=== PATIENT | female | born 1990 | race Caucasian/White ===

== ENCOUNTER 2019-08-02 15:32 | Outpatient (RCR) | payer OTHER, SELFPAY ==
[2019-08-03] MEDS: RHO(D) IMMUNE GLOBULIN 300 MCG SYRINGE IM (12:34)
== END 2019-10-17 23:59 | disposition home or self-care (01) ==
LOC: ANHLAB 15:32
PROVIDERS: Visit Provider Obstetrics & Gynecology
DX: Z29.13 Encounter for prophylactic Rho(D) immune globulin (principal); O36.0990 Maternal care for other rhesus isoimmunization, unspecified trimester, not applicable or unspecified; Z3A.00 Weeks of gestation of pregnancy not specified
CPT/HCPCS: 36415; 90384; 96372; J2790

== ENCOUNTER 2019-09-22 12:21 | Emergency (ER) | payer OTHER, SELFPAY ==
--- NOTE | 2019-09-22 12:24 | ED.GENADULT ---
HPI - General Adult General Chief complaint: Upper Respiratory Infection Stated complaint: ears and congestion Time Seen by Provider: 09/22/19 12:33 Source: patient Mode of arrival: ambulatory Limitations: no limitations History of Present Illness HPI narrative: 28-year-old female patient presents the [facility] with complaints of cold symptoms for the past 4 days. Patient states she has had some nasal congestion, runny nose, sore throat and mild cough as well as a headache. Patient states that she has had pressure to the ears especially on the left side and the pressure is actually increased within the last day. Patient denies any fevers that she is aware of. Patient is currently breast-feeding at this time and did give about 2 to 3 weeks ago. Patient states she has been taking some Synex and Tylenol [id number] for her symptoms. Related Data Home Medications Medication Instructions Recorded [facility] 1 tablet PO DAILY 08/16/19 09/22/19 [] famotidine [Pepcid AC] 10 mg PO DAILY 08/16/19 09/22/19 fluoxetine [Prozac] 20 mg PO DAILY 08/16/19 09/22/19 Allergies Allergy/AdvReac Type Severity Reaction Status Date / Time No Known Allergies Allergy Verified 09/22/19 12:34 Review of Systems Review of Systems: Narrative: CONSTITUTIONAL: Denies fever, chills, or sweats. EYES: Denies visual changes, redness, or discharge. ENT: Positive rhinorrhea, congestion, sore throat, and bilateral otalgia more so on the left side. CARDIOVASCULAR: Denies chest pain, palpitations, or edema. RESPIRATORY: Positive cough, denies dyspnea. GASTROINTESTINAL: Denies abdominal pain, nausea, vomiting, or diarrhea. GENITOURINARY: Denies dysuria or hematuria. SKIN: Denies rash or itching. MUSCULOSKELETAL: Denies back pain, joint pain, or myalgia. NEUROLOGIC: Positive headache, denies numbness, or weakness. PSYCHIATRIC: Denies anxiety or depression. [facility] Past Medical History Medical History Anemia Anxiety Obesity Family History Family History Grandparent Diabetes mellitus Hypertension Sibling Diabetes mellitus Hypertension Mother Hypertension Social History Social History Smoking status: Former smoker Substance use: never Spiritual care concerns: No Comments At the time of my signature I agree with nursing past medical history, surgical, social, and family history. There is no relevant family history pertinent to the presenting complaint. Exam Narrative: Exam Narrative: GENERAL: Well-appearing, well-nourished, and in no acute distress. HEAD: Normocephalic, atraumatic. EYES: PERRLA and EOMI. ENT: Nares clear, no rhinorrhea or epistaxis. Mucous membranes moist. Posterior pharynx with erythema, 2+ tonsil enlargement and exudates noted on the left side. Patient's TM on the left does appear to have erythema noted, no foreign bodies in the canal NECK: Supple. No lymphadenopathy CHEST: Clear to auscultation. No respiratory distress. HEART: Regular rate and rhythm. No murmur heard. Normal peripheral pulses. ABDOMEN: Soft, nontender, nondistended, normal active bowel sounds. EXTREMITIES: Normal range of motion. No edema. SKIN: Warm, dry, no rash. NEURO: No focal deficits. Alert and oriented x3. Course Reevaluation(s) Reevaluation #1: Notify patient that she is negative today for strep. Discussed with her we will go ahead and treat her with the amoxicillin with for the ear infection today and she can also take Tylenol to help with the pain. Patient verbalized understanding denies any other questions or concerns at this time. Date: 09/22/19 Time: 12:51 Vital Signs Vital signs: Vital Signs Temperature 36.9 C 09/22/19 12:27 Pulse Rate 75 09/22/19 12:27 Respiratory Rate 20 09/22/19 12:27 Blood Pressure
[2019-09-22 12:27] VITALS: BP 130/89; PULSE 75; RESP 20; TEMP 36.9; O2SAT 99
== END 2019-09-22 12:55 | disposition home or self-care (01) ==
PROVIDERS: Emergency Provider Nurse Practitioner Family
DX: H66.92 Otitis media, unspecified, left ear (principal); Z87.891 Personal history of nicotine dependence; F41.9 Anxiety disorder, unspecified; D64.9 Anemia, unspecified
CPT/HCPCS: 87081; 87880; 99213; G0463

== ENCOUNTER 2019-10-09 13:08 | Emergency (ER) | payer OTHER, SELFPAY ==
[2019-10-09 13:30] VITALS: BP 133/73; PULSE 76; RESP 18; TEMP 37.2; O2SAT 99
--- NOTE | 2019-10-09 13:53 | ED.GENADULT ---
HPI - General Adult General Chief complaint: Ear Stated complaint: Possible ear infection Time Seen by Provider: 10/09/19 13:53 Source: patient Mode of arrival: ambulatory Limitations: no limitations History of Present Illness HPI narrative: This is a 28 years old female presented office for re-evaluation of possible ear infection. Stated she was seen about 2 weeks ago for URI symptoms, diagnosed with ear infection. She completed an antibiotic which has improved slightly however she still cannot hear out from her left ear. She also report a little sinus drainage with scratchy throat. Denies fever. She took Flonase and DayQuil this morning which has helped a little bit with her head congestion. I reviewed patient's previous visit. HPI - General Adult General Chief complaint: Upper Respiratory Infection Stated complaint: ears and congestion Time Seen by Provider: 09/22/19 12:33 Source: patient Mode of arrival: ambulatory Limitations: no limitations History of Present Illness HPI narrative: 28-year-old female patient presents the [facility] with complaints of cold symptoms for the past 4 days. Patient states she has had some nasal congestion, runny nose, sore throat and mild cough as well as a headache. Patient states that she has had pressure to the ears especially on the left side and the pressure is actually increased within the last day. Patient denies any fevers that she is aware of. Patient is currently breast-feeding at this time and did give about 2 to 3 weeks ago. Patient states she has been taking some Synex and Tylenol [id number] for her symptoms. Related Data Home Medications Medication Instructions Recorded Confirmed fluoxetine [Prozac] 20 mg PO DAILY 08/16/19 10/09/19 Allergies Allergy/AdvReac Type Severity Reaction Status Date / Time No Known Allergies Allergy Verified 10/09/19 13:41 Review of Systems Review of Systems: Narrative: CONSTITUTIONAL: Denies fever ENT: Reports rhinorrhea, congestion, sore throat, left ear clogged CARDIOVASCULAR: Denies chest pain RESPIRATORY: Denies cough GASTROINTESTINAL: Denies abdominal pain, nausea, vomiting, diarrhea. GENITOURINARY: Denies urinary symptoms or discharge SKIN: Denies rash MUSCULOSKELETAL: Denies acute back pain NEUROLOGIC: Denies lightheaded PMFSH Past Medical History Medical History Anemia Anxiety Obesity Family History Family History Grandparent Diabetes mellitus Hypertension Sibling Diabetes mellitus Hypertension Mother Hypertension Social History Social History Smoking status: Former smoker Substance use: never Spiritual care concerns: No Comments At time of signature, I agree with nursing past medical, surgical, social and family history. There is no relevant family history pertinent to the presenting complaint. Exam Narrative: Exam Narrative: GENERAL: This is a well-nourished, well-developed patient, in no apparent distress. EYES: PERRL. Sclera clear/white. Vision is grossly intact. EARS: External ears normal, auditory canals clear and without drainage, left TM noted fluid level. Right TM normal without perforation. Hearing grossly intact. NOSE: External nose normal with no obvious nasal discharge, nares without redness, no rhinorrhea. THROAT: Mucous membranes moist, posterior pharynx clear. NECK: Neck supple, non-tender without lymphadenopathy, masses or thyromegaly. CARDIOVASCULAR: Regular rate and rhythm without murmurs, gallops, or rubs. RESPIRATORY: Clear to auscultation. Breath sounds equal bilaterally. No wheezes, rales, or rhonchi. GASTROINTESTINAL: Abdomen soft, non-tender, nondistended. Bowel sounds are active. No hepato-splenomegaly, or palpable masses. No guarding. SKIN: warm, intact with no suspicious lesions or rash, good t
== END 2019-10-09 14:18 | disposition home or self-care (01) ==
PROVIDERS: Emergency Provider Nurse Practitioner
DX: H65.02 Acute serous otitis media, left ear (principal); F41.9 Anxiety disorder, unspecified; Z87.891 Personal history of nicotine dependence
CPT/HCPCS: 99213; G0463

== ENCOUNTER 2023-05-29 15:16 | Emergency (ER) | payer OTHER, SELFPAY ==
--- NOTE | ~2023-05-29 | XR_ITS ---
EXAMINATION: XR foot RT min 3V DATE: 05/29/2023 15:35 INDICATION: Trauma to the dorsum of the right foot TECHNIQUE: Dorsoplantar, two oblique and lateral views of the right foot were obtained. COMPARISON: None. FINDINGS: Widening of the fifth proximal interphalangeal joint with irregular cortical contour at the head of t he proximal phalanx which could represent sequela of prior trauma or more likely surgery. Correlate w ith clinical history. Bone alignment is otherwise normal. No acute fracture. Remaining joint spaces a re normal. Small plantar calcaneal spur. Mild soft tissue swelling over the dorsum of the midfoot. IMPRESSION: 1. No acute osseous abnormality. Reviewed, dictated and finalized at location A.
--- NOTE | 2023-05-29 15:23 | ED.LOWEXIN ---
HPI - Extremity Injury (Lower) General Chief Complaint: Extremity Injury, Lower Stated Complaint: Right Foot Injury Time Seen by Provider: 05/29/23 15:30 Source: patient Mode of arrival: ambulatory Limitations: no limitations History of Present Illness HPI Narrative: Jocelyn is a 32-year-old female patient presenting to the clinic today with complaints of right foot pain and bilateral ear pain. She reports that she injured her foot last night when she shut her front door on her foot. Also reports that her ears have been draining in the back of her throat and causing her to become nauseous. The ear discomfort is been going on for couple weeks. Related Data Home Medications Medication Instructions Recorded Confirmed fluoxetine 20 mg capsule (Prozac) 20 mg PO DAILY 08/16/19 10/09/19 buspirone 10 mg tablet mg 05/29/23 lurasidone 20 mg tablet mg 05/29/23 naltrexone 50 mg tablet mg 05/29/23 ondansetron HCl 4 mg tablet mg 05/29/23 Allergies Allergy/AdvReac Type Severity Reaction Status Date / Time No Known Allergies Allergy Verified 10/09/19 13:41 Review of Systems Review of Systems: Pertinent positives per HPI. Patient denies any fever, chills, rash, headache, visual changes, dizziness, cough, runny nose, sore throat, shortness of breath, chest pain, palpitations, nausea, vomiting, diarrhea, constipation, abdominal pain, or any urinary issues. PMFSH Past Medical History Medical History Anemia Anxiety Obesity Family History Family History Grandparent Diabetes mellitus Hypertension Sibling Diabetes mellitus Hypertension Mother Hypertension Social History Social History Smoking status: Former smoker Substance use: never Spiritual care concerns: No Comments At the time of my signature, I reviewed and agree with the nursing past medical, surgical, social, and family history. There is no relevant family history pertinent to the patient complaint. Exam Narrative: General: Well-developed, well nourished, in no apparent distress Head: Normocephalic, atraumatic Eyes: Pupils equally round and reactive to light bilaterally, EOM intact, sclera and conjunctive clear, no discharge, lids normal Ears: TMs intact and congested with fluid noted behind bilateral TMs ear canals clear, no drainage, grossly hearing normal. Nose: Nares patent, no discharge, no inflammation, no sinus tenderness. Mouth: Oropharynx without lesions or masses, good dentition, MMM. Neck: Supple, trachea midline, no enlargement of anterior or posterior cervical nodes, no thyroid masses or goiter palpable. Cardio: Regular rate and rhythm, s1 and s2 normal, no murmur appreciated. Resp: Clear to auscultation bilaterally anteriorly and posteriorly, no rhonchi, rales, wheezing or rubs Musculoskeletal: No deformity, bruising and swelling noted to the proximal dorsal foot with-tender to palpation, grossly normal range of motion, muscle strength strong and equal, peripheral pulse strong, no edema, no cyanosis, normal gait and station Course Course Emergency Course: Portions of this record may have been created with voice recognition software. Level of Care: Express Care Visit Vital Signs Vital signs: Vital signs reviewed MDM - Extremity Injury (Lower) MDM Narrative Medical decision making narrative: At the time of visit patient is resting comfortably on the exam table. X-ray of the right foot was performed and was negative for any sign of fracture or malalignment. I suspect patient has a contusion to the top of the right foot. Patient also has serous otitis. Prescription for prednisone was sent to the pharmacy and supportive measures were discussed with the patient and she voiced understanding discharge instructions agrees to treatment plan. William
[2023-05-29 15:25] VITALS: BP 124/69; PULSE 77; RESP 18; TEMP 36.7; O2SAT 98
[2023-05-29 15:32] VITALS: BP 124/69; PULSE 77; RESP 18; TEMP 36.7; O2SAT 98
== END 2023-05-29 15:50 | disposition home or self-care (01) ==
PROVIDERS: Emergency Provider Nurse Practitioner Family
DX: S90.31XA Contusion of right foot, initial encounter (principal); H65.00 Acute serous otitis media, unspecified ear; Z79.899 Other long term (current) drug therapy; Z87.891 Personal history of nicotine dependence; W23.0XXA Caught, crushed, jammed, or pinched between moving objects, initial encounter
CPT/HCPCS: 73630; 99203; G0463

== ENCOUNTER 2023-11-04 11:17 | Emergency (ER) | payer OTHER, SELFPAY ==
[2023-11-04 11:24] VITALS: BP 118/69; PULSE 74; RESP 16; TEMP 36.9; O2SAT 100
--- NOTE | 2023-11-04 12:22 | ED.EAR ---
HPI - Ear Problem General Chief complaint: Ear Stated complaint: Right Ear Pain Source: patient Mode of arrival: ambulatory Limitations: no limitations History of Present Illness HPI Narrative: Patient presents for evaluation of right-sided ear pain. Symptom onset this morning. Over last few days she has had some sinus congestion, sore throat and occasional cough. Denies any fever, chills, nausea, vomiting. No recent sick contacts to her knowledge. She is not taking any medication to assist with her symptoms. Denies drainage from the ear. She does vape. Related Data Home Medications Medication Instructions Recorded Confirmed fluoxetine 20 mg capsule (Prozac) 20 mg PO DAILY 08/16/19 10/09/19 buspirone 10 mg tablet mg 05/29/23 lurasidone 20 mg tablet mg 05/29/23 naltrexone 50 mg tablet mg 05/29/23 Allergies Allergy/AdvReac Type Severity Reaction Status Date / Time No Known Allergies Allergy Verified 10/09/19 13:41 Review of Systems Review of Systems: CONSTITUTIONAL: Denies fever, chills, or sweats. EYES: Denies visual changes, redness, or discharge. ENT: Reports right-sided ear pain. Denies rhinorrhea, congestion, or sore throat CARDIOVASCULAR: Denies chest pain, palpitations, or edema. RESPIRATORY: Denies cough or dyspnea. GASTROINTESTINAL: Denies abdominal pain, nausea, vomiting, or diarrhea. GENITOURINARY: Denies dysuria or hematuria. SKIN: Denies rash or itching. MUSCULOSKELETAL: Denies back pain, joint pain, or myalgia. NEUROLOGIC: Denies headache, numbness, dizziness, or weakness. PSYCHIATRIC: Denies anxiety or depression. [facility] Past Medical History Medical History Anemia Anxiety Obesity Surgical History Surgical History History of tubal ligation Family History Family History Grandparent Diabetes mellitus Hypertension Sibling Diabetes mellitus Hypertension Mother Hypertension Social History Social History Smoking status: Current every day smoker Tobacco type: e-cigarettes/vaping Substance use: never Living arrangements: with family Gender identity (if verbalized by the patient): Female Sexual Orientation (if Verbalized by the Patient): Straight or Heterosexual Spiritual care concerns: No Exam Narrative: GENERAL: Well-appearing, well-nourished, and in no acute distress. HEAD: Normocephalic, atraumatic. EYES: PERRLA and EOMI. ENT: Nares clear, no rhinorrhea or epistaxis. Mucous membranes moist. Oropharynx without tonsillar hypertrophy exudate or other lesions. Right tympanic membrane erythema with visible air fluid level NECK: Supple. No adenopathy or masses. No carotid bruits or JVD CHEST: Clear to auscultation. No respiratory distress. No wheezes rales or rhonchi HEART: Regular rate and rhythm. No murmur heard. Normal peripheral pulses. ABDOMEN: Soft, nontender, nondistended, normal active bowel sounds. EXTREMITIES: Normal range of motion. No edema. SKIN: Warm, dry, no rash. NEURO: No focal deficits. Alert and oriented x3. PSYCH: Normal mood and affect. Course Course Emergency Course: This is a 32-year-old female who presented for evaluation of right-sided ear pain. She has evidence of otitis media on exam. Will treat with Augmentin. Advised on smoking cessation. Increase hydration. [id number] agents for symptom management. Follow up with primary provider. Go to the ER for worsening symptoms. Patient in agreement with of care. Level of Care: Express Care Visit Vital Signs Vital signs: Vital Signs Temperature 36.9 C 11/04/23 11:24 Pulse Rate 74 11/04/23 11:24 Respiratory Rate 16 11/04/23 11:24 Blood Pressure 118/69 11/04/23 11:24 Pulse Oximetry 100 11/04/23 11:24 Oxygen D
== END 2023-11-04 12:26 | disposition home or self-care (01) ==
PROVIDERS: Emergency Provider Nurse Practitioner
DX: H66.91 Otitis media, unspecified, right ear (principal); F17.290 Nicotine dependence, other tobacco product, uncomplicated
CPT/HCPCS: 99213; G0463

== ENCOUNTER 2025-04-19 09:24 | Emergency (ER) | payer OTHER, SELFPAY ==
--- OUTSIDE RECORDS SUMMARY | 2025-04-06 05:40 | XMS_ITS ---
Author Organization Replaced by [facility] Address [address] [place] [address] Care Team Providers Care Accounting Reconciliation Clerk Name Role Phone Sae Allen Primary Care Provider [facility], [facility] Unavailable U navailable REASON FOR VISIT 4-6 week F/U Social History Sex Assigned At : Social History Observation Description Sex Assigned At Female Encounters Encounter Location Date Provider Diagnosis [address] [address] 04/06/2025 Sae Allen Plan Of Treatment Next Appt Details Provider Name:Sae Bella , 05/16/2025 08:20:00 AM, [address] [place] [address], [address], Progress Notes * Jocelyn GORDONDOB:[birth year] (34 yo F)Acc No.[id number]:04/06/2025 UNLOCKED PROGRESS NOTE Patient: Berna WINSLOWica Provider: Eliz Allen DNP, PMHNP-BC :1990 A ge:34 Y S ex:Female Date:04/06/2025 Address:[address] [facility] [place], [place] Subjective: * Chief Complaints: * 1 . 4-6 week F/U. * Medical History: Objective: * Vitals: Assessment: Plan: * Treatment: * * Electronic signature of Jose Allen APRN, [id number] on 04/19/2025 at 09:46 AM CDT Sign off status: Pending * Provider: Eliz Allen DNP, PMHNP- Date: 0 04/06/2025 Generated for Mariely lares/Beni/Kip on: 0 04/19/2025 09:46 AM CDT
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
[2025-04-19 09:36] VITALS: BP 135/79; PULSE 80; RESP 16; TEMP 36.9; O2SAT 100
--- OUTSIDE RECORDS SUMMARY | 2025-04-19 09:46 | XMS_ITS | Clinical Summary ---
Author Organization [facility] Address [address] [place] [address] Phone Care Team Providers Care Fancy Stitcher Name Role Phone Kade Montaño MD Primary Care Provider Allergies No known active allergies Medications oxyCODONE-aceta minophen (PERCOCET) 5-325 MG Tablet Take 1 Tab by mouth every 6 hours as needed for Pain. 8 Tab 8 Active Additional Information Patient not taking.Reported on 09/16/2023 Norethindrone, Contraceptive, 0.35 MG Tablet Take 1 Tab by mouth daily. Active HYDROcodone-micki taminophen (NORCO) 5-325 MG Tablet Take 1 Tab by mouth every 6 hours as needed for Moderate or more severe pain. 10 Tab 9 Active Additional Information Patient not taking.Reported on 09/16/2023 FLUoxetine HCl (PROZAC PO) Take by mouth. Act ranjith ondansetron (ZOFRAN) 4 MG Tablet Take 1-2 Tablets by mouth every 8 hours as needed for Nausea - 1st line. 10 Tablet 3 Active Additional Information Patient not taking.Reported on 09/16/2023 lurasidone (LATUDA) 20 MG Tablet TAKE 1 TABLET BY MOUTH ONCE DAILY IN THE EVENING WITH FOOD 4 Active busPIRone (BUSPAR) 10 MG Tablet TAKE 1 TABLET BY MOUTH TWICE DAILY FOR 14 DAYS 4 Active diclofenac (VOLTAREN) 50 MG Tablet Delayed ResponseIndicat ions:Patellar tendonitis of right knee Take 1 Tablet by mouth 3 times daily. 45 Tablet Active Social History Tobacco Use Types Packs/Day Years Used Date Smoking Tobacco: Former Cigarettes Q uit: 07/31/2017 Smokeless Tobacco: Never Tobacco Cessation:Counseling Given: Not Answered Alcohol Use Standard Drinks/Week Comments Not Currently 0 (1 standard drink = 0.6 oz pur e alcohol) occasionally Sexually Active Control Partners Comments Yes Male Comments No Sex and Gender Information Value Date Recorded Sex Assigned at Not on file Legal Sex Female 12:40 AM CDT Gender Identity Not on file Sexual Orientation Not on file Last Filed Vital Signs Vital Sign Reading Time Taken Comments Blood Pressure 134/83 12/28/2024 10:45 PM CDT Pulse 58 12/28/2024 10:45 PM CDT Temperature 37 C (98.6 F) 12/28/2024 9:10 PM CDT Respiratory Rate 16 12/28/2024 10:45 PM CDT Oxygen Saturation 100% 12/28/2024 10:45 PM CDT Inhaled Oxygen Concentration - - Weight 89.8 kg (198 lb) 12/28/2024 9:10 PM CDT Height 170.2 cm (5' 7) 12/28/2024 9:10 PM CDT Body Mass Index 31.01 12/28/2024 9:10 PM CDT Plan of Treatment Health Maintenance Due Date Last Done Comments Hepatitis C Virus (HCV) Screening 1989 Pap Smear 2010 Human Papillomavirus (HPV) Immunization (1 - 3-dose SCDM series) 2016 Cervical Cancer Screening (CCS) 12/04/2019 HPV/Cotest 12/04/2019 SARS-COV-2 Immunization (2 - 2023- season) 2024 03/22/2021 Hepatitis B Immunization (3 of 3 - 19+ 3-dose series) 07/27/2024 03/17/2024, 01/26/2024 Influenza Immunization (#1) 04/25/202502/2024, 06/23/2019 Respiratory Syncytial Virus (RSV) Immunization (Adult) (1 - 1-dose 75+ series) 2064 DTaP/Tdap/Td Immunization Discontinued 2018, 03/12/2018 TdaP Immunization Completed 06/23/2019, 03/12/2018 Meningococcal Immunization (ACWY) Aged Out No longer eligible based on patient's age to complete this topic Pneumococcal Immunization Combined Aged Out No longer eligible based on patient's age to complete this topic Rotavirus Immunization Aged Out No lo nger eligible based on patient's age to complete this topic Insurance [place]ICAID [place] Advance Directives * Full Code (Latest Code Status on File) Date Activated Date Inactivated Comments 02/14/2016 7:37 AM 02/15/2016 7:01 PM CPR-Full [place] atment: FULL ARREST: Attempt Resuscitation/CPR wit intubation and mechanical ventilation. PRE-ARREST: Use entire range of life support measures to stabilize the patient. Care Teams Fancy Stitcher Relationship Specialty Start Date End Date Kade Montaño MD [address] [place] [address], [address] [address] PCP - General Family Medicine 07/19/22
--- OUTSIDE RECORDS SUMMARY | 2025-04-19 09:46 | XMS_ITS | Clinical Summary ---
Author Organization [facility] Address [address] [place] [address] Care Team Providers Care Traffic Administrator Name Role Phone Alem Dan NP Unavailable [phone] Eulalio Garcias MD Unavailable [phone] Elissa Arteaga PT Unavailable Unavailable Kade Montaño MD Primary Care Provider Allergies No known active allergies Medications FLUoxetine (PROzac) 40 mg capsuleIndicati ons:depression Take 1 capsule (40 mg total) by mouth daily 30 capsule 11 11/30/19 23 Active busPIRone (BUSPAR) 10 mg tabletIndicatio ns:Generalized Anxiety Disorder Take 1 tablet (10 mg total) by mouth 2 (two) times a day 03/31/20 25 Active meloxicam (MOBIC) 15 mg tablet Take 1 tablet (15 mg total) by mouth daily 30 tablet 04/06/20 25 025 Active busPIRone (BUSPAR) 10 mg tabletIndicatio ns:Generalized Anxiety Disorder Take 1 tablet (10 mg total) by mouth 3 (three) times a day 90 tablet 11 11/29/19 23 025 Discontinued naltrexone microspheres (VIVITROL) 380 mg suspension,exte nded rel reconIndication s:alcoholism Inject 380 mg into the muscle as instructed every 28 (twenty-eight ) days 1.2 each 12/27/19 23 025 Discontinued(T herapy completed) lurasidone (LATUDA) 20 mg tablet Take 1 tablet (20 mg total) by mouth daily 09/14/19 24 025 Discontinued(T herapy completed) hydrOXYzine (ATARAX) 25 mg tablet Take 1 tablet (25 mg total) by mouth every 8 (eight) hours as needed 025 Discontinued(T herapy completed) Active Problems Problem Noted Date Diagnosed Date S/P tubal ligation 03/31/2025 Severe episode of recurrent major depressive disorder, without psychotic features 11/27/2022 Assessment & Plan (11/27/2022 12:51 PM CDT): Ms. Berg is a 31 yo F with a hx of depression and alcohol use, admitted for SI. Patient reports a few years of depressive sx and episodes consistent of low mood, anhedonia, change in sleep, appetite, interest and SI with one past SA. She denies psychosis and no jeffrey. She reports binge drinking alcohol and recognizing worsening depressive sx when she binge drinks. She presents now with depressive sx and SI with SA by OD on hydroxyzine. Risk assessment: patient had recent SI. Admission is appropriate. PLAN - continue admission - restart Prozac 40mg every day - increase buspirone to 10mg TID - start Naltrexone 50mg every day with plan to switch to WHITEHEAD - appreciate SW and medical team recs Moderate alcohol use disorder 11/27/2022 Assessment & Plan (11/27/2022 12:52 PM CDT): Patient hasa hx of alcohol use with use more than intended, binge drinking every few days, worsening depressive sx with drinking, inability to stop and continued drinking despite effects. - patient is motivated for treatment - start naltrexone 50mg every day with a plan to switch to WHITEHEAD - refer to therapy and OP tx Primary insomnia 09/04/2021 Overview (09/04/2021): - chronic, controlled, currnetly on Hydroxyzine 50mg but oo strong for her, adviced to lower dose to 25mg nightly PRN DDD (degenerative disc disease), lumbar 07/26/20 Degenerative lumbar spinal stenosis 07/26/2021 Grade 1 isthmic spondylolisthesis at L5-S1 06/04 Lumbar spondylosis with left L5 radiculopathy Spondylolisthesis at L5-S1 level 02/28/2021 HSV-2 (herpes simplex virus 2) infection 020 Assessment & Plan (05/11/2020 9:48 AM CDT): - has had it since 2013 - she has valcyclovir at home to use with outbreaks Alternating constipation and diarrhea 05/11/2020 Menstrual cycle disorder 05/11/2020 Abdominal pain 05/11/2020 Assessment & Plan (06/14/2020 1:57 PM CDT): Mild to moderate mid to lower abdominal cramping that occurs with BM's. She says it is not always relieved with BM's. Generalized anxiety disorder 04/19/2020 Assessment & Plan (04/19/2020 11:41 AM CDT): - being managed by psychiatry - currently on Prozac and Vistaril 25mg PRN Gastroesophageal reflux disease without esophagi tis 04/19/2020 Overview (05/11/2020): - been on Pepcid for few years - takes Pepcid daily or else gets Acid reflux - Continue on current meds, encouraged healthy diet and exercise. Avoid trigger foods including: carbonated beverages, caffeine, spicy, fried foods, tomatoes, cucumbers, and mint. Avoid eating/drinking anything for at least 2 hours before bed. Assessment & Plan (04/19/2020 11:44 AM CDT): - been on Pepcid for few years - takes Pepcid daily or else gets Acid reflux - Continue on current meds, encouraged healthy diet and exercise - Avoid trigger foods including: carbonated beverages, caffeine, spicy, fried foods, tomatoes, cucumbers, and mint Avoid eating/drinking anything for at least 2 hours before bed. - Sleep with bed propped. 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 Patient had conservative therapy which failed, and LIS by in August of this year with unfortunate recurrent disease. Will send referral to colo-rectal specialists at [place]. Patient is understanding and agreeable to treatment plan. Assessment & Plan (06/14/2020 1:47 PM CDT): Pt says she had noted multiple anal fissures. She was given nitro cream by her PCP which helped with some, but still has a fissure that is more internal and doesn't seem to be healing. She has seen blood in stool once. Usually just sees small amount of red blood on TP after wiping. Upon exam, noted to have anal fissure at about 3 o'clock and located further internally in rectum. She says she has been using the nitro cream on this area but doesn't seem to be healing. She says it is painful with BM's. Will aim to reduce frequency of BM's to help area heal. She was instructed to use fissure cream BID. Assessment & Plan (05/11/2020 9:53 AM CDT): - physical exam on last visit did was unremarkable - however, symptoms and descriptions were consistent with anal fissure - common for small anal fissures to be hard to visualize - since she had done conservative measures and was denying constipation at last time I prescribed her compounded topical nitroglycerine for use. - She has just picked it up and has not started using it, she was also prescribed fiber supplements - continue use of Sitz bath, patient denies any constipation so no need for stool softener, will prescribe nitro topical gel for use BID PRN and will also prescribe fiber supplement Assessment & Plan (04/19/2020 1:06 PM CDT): - physical exam was not remarkable - however, symptoms and descriptions are consistent with anal fissure - common for small anal fissures to be hard to visualize - continue use of Sitz bath, patient denies any constipation so no need for stool softener, will prescribe nitro topical gel for use BID PRN and will also prescribe fiber supplement - f/u in 4 weeks Resolved Problems Problem Noted Date Diagnosed Date Resolved Date Routine general medical exam ination at a [facility] 11/27/2022 03/31/2025 Assessment & Plan (11/27/2022 10:48 AM CDT): No active complaints, or chronic medical condition identified The rest of the plan is to per the primary team Cervical strain 06/04/2021 03/31/2025 MDD (major depressive disorder) 04/13/2021 11/27/2022 Family history of alcohol abuse 04/13/2021 11/27/2022 Change in bowel habit 06/14/20202022 Assessment & Plan (06/14/2020 1:56 PM CDT): Started about 5 months ago. Denies any medication changes or diet changes. She says she noted BM's alternating from diarrhea, to hard stool, to normal on weekly basis. She also started to get abdominal cramping with the BM's that isn't always relieved once she has a BM. Pt also noted multiple anal fissures, some of which have healed with nitro cream, however one that is deeper and will not heal. She has had fecal incontinence as well. She denies family history of IBD or colon cancer. Colonoscopy will be scheduled. Use dicyclomine QID prn and labs today. Nausea 06/14/2020 11/27/2022 Assessment & Plan (06/14/2020 1:56 PM CDT): Intermittently occurring since change in bowel habits. No vomiting. Change in bowel habits 06/14/202011/27 Overview (06/14/2020): Added automatically from request for surgery [id number] BMI 26.0-26.9,adult 06/14/2020 03/31/20 25 Blood in stool 05/11/2020 11/27/2022 Assessment & Plan (06/14/2020 1:57 PM CDT): Pt saw bright red blood on stool once. She usually just intermittently sees on TP. Noted to have anal fissure which is likely cause but will rule out other causes with colonoscopy. Bipolar 1 disorder 04/19/2020 3 Assessment & Plan (02/28/2021 4:06 PM CDT): - has stopped medication on her own - states she feels better - she used to follow with psychiatry Dr. Dan - used to be on Lamictal, Prozac and Hydroxyzine PRN Assessment & Plan (04/19/2020 11:40 AM CDT): - being treated by psychiatry by Dr. Dan - recently started on mood stabilizer - current medication Lamictal and Prozac, and Hydroxyzine PRN Hematoma of rectus sheath 12/14/2016 Overview (01/17/2017): Rectus sheath hematoma, initial encounter Encounters Date Type Department Care Team Description 04/06/2025 Orders Only [facility] Primary Care at [address] [phone] Kade Montaño MD 04/04/2025 Orders Only [facility] Medical [facility] Care at [address] [phone] Kade Montaño MD Pain of right hip (Primary Dx) 04/01/2025 Results Follow-Up [facility] Medical [facility] at [address] [phone] Kade Montaño MD Vaginitis panel Vaginal, RPR Blood, Vitamin D 25 hydroxy, Additional followed-up results: 11 03/31/2025 9:43 AM CDT - 03/31/2025 11:59 PM CDT Hospital Encounter [address] [address] Encounter for well woman exam with routine gynecological exam; Vaginal discharge Discharge Disposition: Discharge to home or self care 03/31/2025 9:35 AM CDT - 03/31/2025 11:59 PM CDT Hospital Encounter [facility] [address] [place] [id number] Screen for STD (sexually transmitted disease) Discharge Disposition: Discharge to home or self care 03/31/2025 9:25 AM CDT Lab [address] [address] Screen for sexually transmitted diseases; Alcohol use disorder in remission; Encounter for well woman exam with routine gynecological exam; Severe episode of recurrent major depressive disorder, without psychotic features (HCC); Generalized anxiety disorder; Primary insomnia 03/31/2025 8:15 AM CDT Office Visit [facility] at [address] [phone] Kade Montaño MD Encounter for well woman exam with routine gynecological exam (Primary Dx); Severe episode of recurrent major depressive disorder, without psychotic features (HCC); Generalized anxiety disorder; HSV-2 (herpes simplex virus 2) infection; Alcohol use disorder in remission; Primary insomnia; S/P tubal ligation; Screen for STD (sexually transmitted disease); Screen for sexually transmitted diseases; Vaginal discharge 03/17/2025 Telephone [facility] at [address] [phone] Kade Montaño MD Well woman appt request 01/20/2025 Telephone [facility] at [address] [phone] Kade Montaño MD Additional Services Or Orders from Last 3 Months Immunizations Immunization Administration Dates Next Due Hep B Vaccine 03/17/2024,01/26/2024 Influenza, Quadrivalent, Spl it, Intramuscular 06/23/2019 Influenza, Trivalent, Preser vative Free, Intramuscular 07/01/2024 Influenza, Unspecified 03/31/2025(Deferr ed: Patient Refused),09/22/2024(Deferred: Patient Refused),05/25/2021(Deferred: Patient Refused),07/27/2020(Deferred: Patient Refused),06/02/2020(Deferred: Patient Refused),05/25/2020(Deferred: Patient Refused),05/25/2020(Deferred: Patient Refused),05/25/2020(Deferred: Patient Refused),05/25/2020(Deferred: Patient Refused) MMR 04/21/2018 Tdap 06/23/2019,03/12/2018 Surgical History Surgery Date Site/Laterality Comments TUBAL LIGATION 08/25/2019 - 09/24/2019 COLONOSCOPY 07/25/2020 ANAL FISSURECTOMY 08/31/2020 Medical History Medical History Date Comments Hx Other Medical 12/14/2016 rectus sheath h emotoma with bleeding Depression 01/2017 Depression; Comm ents: DRS 12/26/2016 - Herpes Anxiety Bipolar disorder Anal fissure Anal itching Rectal pain Depression Anxiety Family History Medical History Relation Name Comments Cirrhosis Brother 1 Cirrhosis; Other Father Alive and well; Cancer Maternal Grandmother Diabetes Maternal Grandmother Anxiety disorder Mother Bipolar disorder Mother Depression Mother Hypertension Mother Hypertension; Smoker Mother Diabetes Sister 1 Hypertension Sister 1 Hypertension; No Known Problems Sister 2 Relation Name Status Comments Brother 1 Brother 2 Alive Father Alive Maternal Grandmother Alive Mother Alive Sister 1 Alive Sister 2 Alive Social History Tobacco Use Types Packs/Day Years Used Date Smoking Tobacco: Former Cigarettes Q uit: 08/01/2017 Smokeless Tobacco: Never Tobacco Cessation:Counseling Given: Not Answered Comments:Smoking History Packs/day: 10 Cigarettes Alcohol Use Standard Drinks/Week Comments No 0 (1 standard drink = 0.6 oz pur e alcohol) Humiliation, Afraid, Rape, and Kick questionnair e Answer Date Recorded Within the last year, have y ou been afraid of your partner or ex-partner? No 11/27/2022 Within the last year, have y ou been humiliated or emotionally abused in other ways by your partner or ex-partner? No Within the last year, have y ou been kicked, hit, slapped, or otherwise physically hurt by your partner or ex-partner? No 11/27/2022 Within the last year, have y ou been raped or forced to have any kind of sexual activity by your partner or ex-partner? No 11/27/2022 Social Connection and Isolation Panel Answer Date Recorded In a typical week, how many times do you talk on the phone with family, friends, or neighbors? More than three times a week 11/27/2022 How often do you get togethe r with friends or relatives? More than three times a week 11/27/2022 How often do you attend chur or islam services? Never 11/27/2022 Do you belong to any clubs o r organizations such as hinduism groups, unions, fraternal or athletic groups, or school groups? No 11/27/2022 How often do you attend meet ings of the clubs or organizations you belong to? Never 11/27/2022 Are you , , di vorced, , never , or living with a partner? 11/27/2022 AUDIT-C Answer Date Recorded Q1: How often do you have a drink containing alcohol? Never 09/22/2024 Q2: How many drinks containi ng alcohol do you have on a typical day when you are drinking? Patient does not drink Q3: How often do you have si x or more drinks on one occasion? Never 09/22/2024 Overall Financial Resource Strain (CARDIA) Answe r Date Recorded How hard is it for you to pa y for the very basics like food, housing, medical care, and heating? Not hard at all 11/27/2022 PHQ-2 Answer Date Recorded PHQ-2 Total Score (If total score is 3 or more points, staff should administer the PHQ-9) 0 03/31/2025 [facility] - Occupational Stress Questionnaire Answer Date Recorded Do you feel stress - tense, restless, nervous, or anxious, or unable to sleep at night because your mind is troubled all the time - these days? Very much 11/27/2022 Exercise Vital Sign Answer Date Recorde d On average, how many days pe r week do you engage in moderate to strenuous exercise (like a brisk walk)? 0 days 11/27/2022 On average, how many minutes do you engage in exercise at this level? 0 min 11/27/2022 Hunger Vital Sign Answer Date Recorded Within the past 12 months, y ou worried that your food would run out before you got the money to buy more. Never true 11/28/19 23 Within the past 12 months, t he food you bought just didn't last and you didn't have money to get more. Never true 11/27/2022 PRAPARE - Transportation Answer Date Re corded In the past 12 months, has l ack of transportation kept you from medical appointments or from getting medications? No 12/2022 In the past 12 months, has l ack of transportation kept you from meetings, work, or from getting things needed for daily living? No 11/27/2022 Housing Stability Vital Sign Answer Manan e Recorded In the last 12 months, was t here a time when you were not able to pay the mortgage or rent on time? No 11/27/2022 In the last 12 months, how many places have you lived? 1 11/27/2022 In the last 12 months, was t here a time when you did not have a steady place to sleep or slept in a custodial (including now)? No 11/27/2022 Personal Safety Answer Date Recorded Have you ever been in or are you currently in a harmful physical or emotional relationship or is someone making you feel afraid or unsafe? 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 Not on file Not on file Not on file Obstetrics History Para Term AB IAB SAB Ectopic Multiple Livin g Live Births 3 3 3 0 3 3 Date Outcome GA Total Labor Labor/2nd/3rd Weight Sex Type Anes PTL Skye A1 A5 Name Clin 2008 Term 39w 0d 3.487 kg (7 lb 11 oz) F Vag-S pont Epidur al N Livin g Quita Complications:None 2011 Term 39w 0d 3.147 kg (6 lb 15 oz) M Vag-S pont Epidur al N Livin g Landon 2017 Term 39w 1d 3h 05m 2h 43m/0h 17m/0h 05m 4.116 kg (9 lb 1.2 oz) F Vag-S pont Epidur al N Livin g 9 9 WIENEK E,GIRL JESSIC A Kvng Patterson MD Complications:None Delivery Location:This Facil ity ([facility] Last Filed Vital Signs Vital Sign Reading Time Taken Comments Blood Pressure 124/82 03/31/2025 8:28 AM CDT Pulse 78 03/31/2025 8:28 AM CDT Temperature 36.8 C (98.2 F) 03/31/2025 8:28 AM CDT Respiratory Rate 18 09/19/2024 1: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 Oxygen Saturation 98% 03/31/2025 8:28 AM CDT Inhaled Oxygen Concentration - - Weight 90.1 kg (198 lb 11.2 oz) 03/31/2025 8:28 AM CDT Height 170.2 cm (5' 7) 03/31/2025 8:28 AM CDT Body Mass Index 31.12 03/31/2025 8:28 AM CDT Plan of Treatment Health Maintenance Due Date Last Done Comments HPV Vaccines (1 - 3-dose SCDM series) 2016 Varicella Vaccines (1 of 2 - 13+ 2-dose series) 05/19/2018 Cervical Cancer Screening 06/02/2021 06/02/2020 Covid-19 Vaccine (2 - season) 2024 03/22/2021 Influenza Vaccine (#1) 2025 07/01/2024, 2018 Depression Screening 03/31/2026 03/31/2025, 11/26/2022, 11/26/2022, Additional history exists Regular Well Visit/Exam 18-64 03/31/2026 03/31/2025 DTaP/Tdap/Td Vaccine (3 - Td or Tdap) 06/23/2029 06/23/2019, 03/12/2018 Hepatitis B Screening Completed 03/17/2024, 024 Hepatitis C Screening Completed 03/31/2025, 021 Pneumococcal vaccine <65 Aged Out No longer eligible based on patient's age to complete this topic Procedures Procedure Name Priority Date/Time Associated Diagnosis Comments VAGINAL HIGH RISK HPV DNA DETECTION WITH GENOTYPING Routine 03/31/2025 9:35 AM CDT Encounter for well woman exam with routine gynecological exam VAGINITIS PANEL Routine 03/31/2025 9:35 AM CDT Vaginal discharge EGFR Routine 03/31/2025 9:33 AM CDT Encounter for well woman exam with routine gynecological exam CBC WITHOUT DIFFERENTIAL Routine 03/31/2025 9:33 AM CDT Encounter for well woman exam with routine gynecological exam THYROID FUNCTION CASCADE Routine 03/31/2025 9:33 AM CDT Severe episode of recurrent major depressive disorder, without psychotic features (HCC) Generalized anxiety disorder Primary insomnia Encounter for well woman exam with routine gynecological exam HEMOGLOBIN A1C Routine 03/31/2025 9:33 AM CDT Encounter for well woman exam with routine gynecological exam LIPID PANEL Routine 03/31/2025 9:33 AM CDT Encounter for well woman exam with routine gynecological exam COMPREHENSIVE METABOLIC PANEL Routine 03/31/2025 9:33 AM CDT Encounter for well woman exam with routine gynecological exam VITAMIN B12 Routine 03/31/2025 9:33 AM CDT Alcohol use disorder in remission Encounter for well woman exam with routine gynecological exam FOLATE Routine 03/31/2025 9:33 AM CDT Alcohol use disorder in remission Encounter for well woman exam with routine gynecological exam VITAMIN D 25 HYDROXY Routine 03/31/2025 9:33 AM CDT Alcohol use disorder in remission Encounter for well woman exam with routine gynecological exam HIV 1/2 ANTIBODY PLUS P24 ANTIGEN Routine 03/31/2025 9:33 AM CDT Screen for sexually transmitted diseases HEPATITIS C ANTIBODY Routine 03/31/2025 9:33 AM CDT Screen for sexually transmitted diseases HEPATITIS B SURFACE ANTIGEN Routine 03/31/2025 9:33 AM CDT Screen for sexually transmitted diseases RPR Routine 03/31/2025 9:33 AM CDT Screen for sexually transmitted diseases PAP, REFLEXED FROM HIGH RISK HPV AND GENOTYPING Routine 03/31/2025 12:00 AM CDT PAP WITH REFLEX TO HIGH RISK HPV Routine 06/02/2020 12:06 PM CDT from Last 3 Months or Most Recently Relevant to Health Maintenance Results * (ABNORMAL) Vaginal High Risk HPV DNA Detection with Genotyping (Molecular component) (03/31/2025 9:35 AM CDT) HPV HR non 16/18 vaginal Negative Negative Comment: The following Other High Risk HPV types were not detected: 31, 33, 35, 39, 45, 51, 52, 56, 58, 59, 66, and 68. ADDITIONAL INFORMATION Testing was performed using the terrance HPV assay ([employer] This report is intended for use in clinical monitoring and management of patients. It is not intended for use in medical-legal applications. This test has been modified from the biofuels product development manager's instructions. Its performance characteristics were determined by [facility] in a manner consistent with CLIA requirements. This test has not been cleared or approved by the U.S. Food and Drug Administration. Test Performed by: [place] [address] Bobtailer: Aldair Pineda Ph.D.; CLIA# [id number] HPV HR 16 vaginal Positive(A) Negative [facility] HPV HR 18 vaginal Negative Negative [facility] Vaginal 03/31/2025 9:35 AM CDT 04/06/2025 2:19 PM CDT Narrative [facility] - 04/11/2025 12:59 PM CDT Clinical history and diagnosis->routine pap smear, past one was normal Testing type->Screening Last menstrual period (date if known)->unknown Menstrual status->Irregular Contraceptive use->None us Kade Montaño MD LAB BODY FLUIDS AND STO OLS ORDERABLES Final Result [place] [id number] [facility] Department [place] [address] * Vaginitis panel Vaginal (03/31/2025 9:35 AM CDT) Bacterial Vaginosis Not Detected Not Detected Comment:A negative result do es not preclude a possible infection. Results should be considered in conjunction with clinical presentation to determine the disease status. Jenny group Not Detected Not Detected CERNER [facility] Jenny glabrata/ krusei Not Detected Not Detected [facility] Trichomonas DNA Not Detected Not Detected [facility] Vaginal 03/31/2025 9:35 AM CDT 03/31/2025 1:32 PM CDT Narrative [facility] - 03/31/2025 2:46 PM CDT The [employer] Xpert Xpress MVP test detects DNA targets from anaerobic bacteria associated with bacterial vaginosis, Jenny species associated with vulvovaginal candidiasis, and Trichomonas vaginalis by nucleic acid amplification testing (NAAT). Results should be interpreted in conjunction with other clinical data. This test cannot be used to assess therapeutic success or failure because target nucleic acids may persist following antimicrobial therapy. This test has been cleared by the [place] Food and Drug Administration to aid in the diagnosis of vaginal infections in symptomatic women ages 14 and older. The performance characteristics of this test have been verified by the [facility]. Kade Montaño MD LAB MICROBIOLOGY - [facility] ORDERABLES Final Result [id number] [facility] Department [place] [address] * eGFR (03/31/2025 9:33 AM CDT) eGFR >90 >=60 mL/min/1. 73 m2 Comment: Interpretive Data Reference Interval Normal >/= 90 mL/min/1.73m2 Mildly decreased* 60 - 89 mL/min/1.73m2 Mildly to moderately decreased 45 - 59 mL/min/1.73m2 Moderately to severely decreased 30 - 44 mL/min/1.73m2 Severely decreased 15 - 29 mL/min/1.73m2 Kidney Failure < 15 mL/min/1.73m2 *Relative to young adult level Estimated glomerular filtration rate is determined by the 2020 CKD-EPI equation recommended by the National Kidney Foundation (A Unifying Approach to GFR Estimation: Recommendations of the NKF-ASK Task Force on Reassessing the Inclusion of Race in Diagnosing Kidney Disease, JASN 2020). The CKD-EPI equation should not be used for patients with unstable renal function and has not been validated in children and those over 70. Current interpretive data was last reviewed 2021. Blood 03/31/2025 9:33 AM CDT 03/31/2025 10:58 AM CDT Kade Montaño MD LAB BLOOD ORDERABLES Fi nal Result Performing Organization Address [facility] de Phone Number [address] [address] * Thyroid Function [place] (03/31/2025 9:33 AM CDT) TSH 0.74 0.30 - 4.20 mcIUnit/mL Blood 03/31/2025 9:33 AM CDT 03/31/2025 10:58 AM CDT Kade Montaño MD LAB BLOOD ORDERABLES Fi nal Result Performing Organization Address [facility] de Phone Number [address] [address] * HIV 1/2 Antibody plus p24 Antigen Blood (03/31/2025 9:33 AM CDT) Pathologist [facility] HIV 1/2 ab + p24 ag Nonreactive Nonreactive Comment:Nonreactive for HIV- 1 antigen and HIV-1/HIV-2 antibodies. No laboratory evidence of HIV infection. If acute HIV infection is suspected, consider testing for HIV-1 RNA. Current interpretive data was last revised on 22. Blood 03/31/2025 9:33 AM CDT 03/31/2025 10:58 AM CDT Kade Montaño MD LAB MICROBIOLOGY - GENE RAL ORDERABLES Final Result Performing Organization Address [facility] de Phone Number [address] [address] * Hepatitis C antibody Blood (03/31/2025 9:33 AM CDT) Hep C Ab Nonreactive Nonreactive Comment: Antibodies to HCV not detected. Does NOT exclude the possibility of recent exposure to HCV. Current interpretive data was last revised on 22 Interpretive Data Nonreactive: Antibodies to HCV not detected. Does NOT exclude the possibility of recent exposure to HCV. Equivocal: Equivocal for HCV antibodies. Supplemental molecular testing will be automatically performed to determine infection status in accordance with current CDC screening recommendations. Reactive: Positive for HCV antibodies. This may represent current or past HCV infection. Supplemental molecular testing will be automatically performed to determine current infection status in accordance with current CDC screening recommendations. Interpretive data was last revised on 2019. Blood 03/31/2025 9:33 AM CDT 03/31/2025 10:58 AM CDT Kade Montaño MD LAB MICROBIOLOGY - GENE RAL ORDERABLES Final Result Performing Organization Address City/[facility]/ZIP Co de Phone Number [id number] [email or web address] [address] * Vitamin D 25 hydroxy (03/31/2025 9:33 AM CDT) Pathologist [facility] Vitamin D 25-OH 60.0 30.0 - 80.0 ng/mL Blood 03/31/2025 9:33 AM CDT 03/31/2025 10:58 AM CDT Kade Montaño MD LAB BLOOD ORDERABLES Fi nal Result [address] [email or web address] [address] * RPR Blood (03/31/2025 9:33 AM CDT) RPR Nonreactive Nonreactive Comment:Testing performed by : [facility], [address] [facility], [place]., [address] Blood 03/31/2025 9:33 AM CDT 03/31/2025 3:00 PM CDT Kade Montaño MD LAB MICROBIOLOGY - GENE RAL ORDERABLES Final Result Performing Organization Address [facility] de Phone Number [address] [place] [address] * Hepatitis B Surface Antigen Blood (03/31/2025 9:33 AM CDT) Pathologist [facility] HepBsAg Nonreactive Nonreactive Blood 03/31/2025 9:33 AM CDT 03/31/2025 10:58 AM CDT Kade Montaño MD LAB MICROBIOLOGY - GENE RAL ORDERABLES Final Result Performing Organization Address [facility] de Phone Number [address] [place] [address] * CBC without differential (03/31/2025 9:33 AM CDT) [facility] WBC 6.79 3.80 - 9.90 K/cumm Hgb 12.4 11.9 - 15.5 g/dL [facility] Hct 36.9 35.6 - 45.5 % [facility] Plt 235 150 - 400 K/cumm [facility] MPV 10.2 9.1 - 12.3 fL [facility] RBC 4.19 3.90 - 5.20 M/cumm [facility] MCV 88.1 81.3 - 96.4 fL [facility] MCH 29.6 27.1 - 33.3 pg [facility] MCHC 33.6 32.3 - 35.7 g/dL [facility] RDW CV 11.9 11.1 - 14.9 % [facility] RDW SD 38.3 35.7 - 48.1 fL [facility] NRBC abs 0.00 0.00 - 0.01 K/cumm [facility] Blood 03/31/2025 9:33 AM CDT 03/31/2025 10:58 AM CDT Kade Montaño MD LAB BLOOD ORDERABLES Fi nal Result Performing Organization Address [facility] Co de Phone Number [address] [place] [place] [address] * (ABNORMAL) Hemoglobin A1c (03/31/2025 9:33 AM CDT) Pathologist [facility] Hgb A1C 5.7(H) 4.0 - 5.6 % Estimated Average Glucose 117 mg/dL JONATHAN Comment: The ADA recommends reporting an estimated Average Glucose (eAG) with all Hemoglobin A1c results using the equation derived from a study of 507 normal and diabetic adults. Minority populations were underrepresented and children were not included. (Diabetes Care 31:1688-6904, 2008). The eAG is not equivalent to a fasting glucose. Blood 03/31/2025 9:33 AM CDT 03/31/2025 10:58 AM CDT Kade Montaño MD LAB BLOOD ORDERABLES Fi nal Result Performing Organization Address [facility] de Phone Number [address] [address] * Folate (03/31/2025 9:33 AM CDT) Pathologist [facility] Folic acid 11.1 >=5.0 ng/mL Blood 03/31/2025 9:33 AM CDT 03/31/2025 10:58 AM CDT Kade Montaño MD LAB BLOOD ORDERABLES Fi nal Result Performing Organization Address City/[facility] Co de Phone Number [address] [address] * Vitamin B12 (03/31/2025 9:33 AM CDT) Pathologist [facility] Vitamin B12 925 230 - 1,250 pg/mL Blood 03/31/2025 9:33 AM CDT 03/31/2025 10:58 AM CDT Kade Montaño MD LAB BLOOD ORDERABLES Fi nal Result Performing Organization Address [facility] Co de Phone Number JONATHAN [address] [facility] Department [place] [address] * (ABNORMAL) Lipid panel (03/31/2025 9:33 AM CDT) Cholesterol 208(H) 30 - 199 mg/dL Comment: Interpretive Data Ages < or = 19 years Acceptable: <170 mg/dL Borderline high: 170-199 mg/dL High: >or= 200 mg/dL Ages > or = 20 years Desirable: <200 mg/dL Borderline high: 200-239 mg/dL High: >or= 240 mg/dL Literature References: 1. Expert Panel on Integrated Guidelines for Cardiovascular Health and Risk Reduction in Children and Adolescents. Pediatrics 2011;128:S213 2. NCEP Expert Panel. Circulation 2004;110:227 Current Interpretive Data was last revised on 2018. Triglycerides 56 <=149 mg/dL JONATHAN Comment: Interpretive Data Ages < or = 9 years Acceptable: <75 mg/dL Borderline high: 75-99 mg/dL High: >or= 100 mg/dL Ages 10 to 20 years Acceptable: <90 mg/dL Borderline high: 90-129 mg/dL High: >or= 130 mg/dL Ages > or = 20 years Desirable: <150 mg/dL Borderline high: 150-199 mg/dL High: 200-499 mg/dL Very high: >or= 499 mg/dL Literature References: 1. Expert Panel on Integrated Guidelines for Cardiovascular Health and Risk Reduction in Children and Adolescents. Pediatrics 2011;128:S213 2. NCEP Expert Panel. Circulation 2004;110:227 Current Interpretive Data was last revised on 2018. HDL 73 >=40 mg/dL JONAHTAN Comment: Interpretive Data Ages < or = 19 years Acceptable: >45 mg/dL Borderline low: 40-45 mg/dL Low: <40 mg/dL Ages > or = 20 years Desirable: >or= 60 mg/dL Low: <40 mg/dL Literature References: 1. Expert Panel on Integrated Guidelines for Cardiovascular Health and Risk Reduction in Children and Adolescents. Pediatrics 2011;128:S213 2. NCEP Expert Panel. Circulation 2004;110:227 Current Interpretive Data was last revised on 2018. LDL, calculated 125 <=129 mg/dL JONATHAN ENG Comment: Interpretive Data Ages < or = 19 years Acceptable: <110 mg/dL Borderline high: 110-129 mg/dL High: >or= 130 mg/dL Ages > or = 20 years Optimal: <100 mg/dL Near optimal: 100-129 mg/dL Borderline high: 130-159 mg/dL High: >160 mg/dL Calculated using the Сергей LDL-C estimating equation. This equation was implemented on 2024. Prior to this date LDL-C was estimated using the Friedewald equation. Literature References: 1. Expert Panel on Integrated Guidelines for Cardiovascular Health and Risk Reduction in Children and Adolescents. Pediatrics 2011;128:S213 2. NCEP Expert Panel. Circulation 2004;110:227 3. Сергей Dillon et al. MACIEL Cardiol. 2020 December 23;5(5):540-548. doi: 10.1001/[email or web address] Current Interpretive Data was last revised on 2024. Non-HDL Cholesterol 135 mg/dL JONATHAN ENG Comment: Interpretive Data Ages < or = 19 years Acceptable: <120 mg/dL Borderline high: 120-144 mg/dL High: >145 mg/dL Ages > or = 20 years When triglycerides are >200 mg/dL, Non-HDL cholesterol is a secondary target of therapy with treatment goals that are 30 mg/dL greater than the LDL cholesterol target. Literature References: 1. Expert Panel on Integrated Guidelines for Cardiovascular Health and Risk Reduction in Children and Adolescents. Pediatrics 2011;128:S213 2. NCEP Expert Panel. Circulation 2004;110:227 Current Interpretive Data was last revised on 2018. Chol/HDL ratio 3 JONATHAN ENG Blood 03/31/2025 9:33 AM CDT 03/31/2025 10:58 AM CDT Narrative JONATHAN ENG - 03/31/2025 11:49 AM CDT Has the patient been fasting for 8 hours or more?->No us Kade Montaño MD LAB BLOOD ORDERABLES Fi nal Result JONATHAN ENG [address] [facility] Department of Laboratories [place], [place] [id number] * (ABNORMAL) Comprehensive metabolic panel (03/31/2025 9:33 AM CDT) Sodium 139 135 - 145 mmol/L Potassium, pl 4.4 3.3 - 4.9 mmol/L [facility] Chloride 107 97 - 110 mmol/L [facility] CO2 21(L) 22 - 32 mmol/L [facility] Anion gap 11 2 - 15 mmol/L [facility] BUN 14 6 - 25 mg/dL [facility] Creatinine 0.83 0.60 - 1.10 mg/dL [facility] Glucose 94 70 - 199 mg/dL [facility] Comment: Interpretive Data Fasting glucose >/= 126 mg/dl is diagnostic for diabetes. Fasting is defined as no caloric intake for at least 8 hours. Fasting glucose between 100 mg/dl to 125 mg/dl is diagnostic of prediabetes. In a patient with classic symptoms of hyperglycemia or hyperglycemic crisis, a random glucose >/= 200 mg/dl is diagnostic for diabetes. In the absence of unequivocal hyperglycemia, results should be confirmed by repeat testing. The classification and Diagnosis of Diabetes Diabetes Care 2021; 46: S19-S40. Current interpretive data was last revised 2022. Calcium 9.5 8.5 - 10.3 mg/dL [facility] Bilirubin, total 0.3 0.1 - 1.2 mg/dL [facility] Protein, pl 7.3 6.5 - 8.5 g/dL [facility] Albumin 4.5 3.5 - 5.0 g/dL [facility] Alk phos 50 40 - 130 Units/L [facility] ALT 18 7 - 45 Units/L [facility] AST 25 10 - 45 Units/L [facility] Blood 03/31/2025 9:33 AM CDT 03/31/2025 10:58 AM CDT us Kade Montaño MD LAB BLOOD ORDERABLES Fi nal Result JONATHAN [address] [facility] Department [place] [address] * Pap, Reflexed from High Risk HPV and Genotyping (03/31/2025 12:00 AM CDT) Pap test 03/31/2025 04/15/2025 Narrative 04/18/2025 10:15 AM CDT EPIC results best viewed via link to PDF [facility] [place] [address] Note to Patients: This report may contain a detailed description of human tissue sent by a health care provider to the laboratory for pathologic evaluation. The content of this report is essential for diagnosis and may provide important critical findings. This information may be unfamiliar to patients to review without a medical professional present. It is advised that the patient review this report in the presence of a health care provider who can answer questions and explain the details. CYTOPATHOLOGY REPORT FINAL Patient Name: HONEY BERG Gender: F : 1990 (Age: 34) Address: [address] [place] [address] Hospital #: [id number] Service: UNKNOWN Location: Patient Type: [facility] SPECIMEN Taken: 03/31/2025 Received: 04/15/2025 Accessioned: 04/15/2025 Reported: 04/18/2025 Physician(s): Kade Montaño M.D. FINAL INTERPRETATION SOURCE OF SPECIMEN High Risk HPV and Genotyping with reflex to PAP: STATEMENT OF ADEQUACY - Satisfactory for evaluation - Endocervical cells/transformation zone sample present GENERAL CATEGORIZATION: - Negative for squamous intraepithelial lesion or malignancy ml/04/18/2025 10:[address] (ASCP) Report Electronically Reviewed and Signed Out By Jamilah Galarza MS CT (ASCP) 04/18/2025 10:15:56 Cervicovaginal Cytology (Pap Test) Disclaimer: The Pap test is a screening test used to detect cervical cancer and its precursors; it is not a diagnostic procedure. False negative and false positive results do occur. Pap test results should be interpreted in the context of pertinent clinical information and biopsy results as indicated. CMS Clinical Laboratory Improvement Amendments (CLIA) mandate that cytologic and histologic results be correlated for laboratory software quality assurance analyst & improvement standards. FOR ALL HIGH-GRADE CASES we request submission of follow-up histological material and/or reports that have not been previously provided so that we may fulfill said required standards. Gross Description A. High Risk HPV and Genotyping with reflex to PAP: Cervical/vaginal - Screening ThinPrep Clinical Diagnosis and History Last Menstrual Period: unknown The patient is a 34 year old female with routine pap smear, past one was normal. Report Images and scanned documents, if included only viewable in PDF version The performance characteristics of some immunohistochemical stains, in-situ hybridization and fluorescence in-situ hybridization tests and immunophenotyping by flow cytometry cited in this report (if any) were determined by the Surgical Pathology Department at [facility] as part of an ongoing quality rep program and in compliance with federally mandated regulations drawn from the Clinical Laboratory Improvement Act of 1988 (CLIA '88). Some of these tests rely on the use of analyte specific reagents and are subject to specific labeling requirements by the US Food and Drug Administration. Such diagnostic tests may only be performed in a facility that is certified by the Department of Health and Human Services as a high complexity laboratory under CLIA '88. The FDA has determined that such clearance or approval is not necessary. This test is used for clinical purposes. It should not be regarded as investigational or for research. Nevertheless, federal rules concerning the medical use of analyte specific reagents require that the following disclaimer be attached to the report: This test was developed and its performance characteristics determined by the Surgical Pathology Department of [facility]. It has not been cleared or approved by the U. S. Food and Drug Administration. Kade Chuck Montaño MD LAB CYTOLOGY ORDERABLES Final Result * Pap with reflex to High Risk HPV (06/02/2020 12:06 PM CDT) 06/02/2020 12:0 6 PM CDT 06/02/2020 12:06 PM CDT Narrative 06/06/2020 2:17 PM CDT [facility] Department of Pathology [address] [place] [address], [place] [address] Final Report with Addendum Patient Name: HONEY BERG Address: [address] [place] [address] Gender: F : 1990 (Age: 29) Service: Laboratory Location: Lab [facility] #: [id number] Patient Type: Matt Lab Taken: 06/02/2020 Received: 06/02/2020 Accessioned:: 06/05/2020 Reported: 06/06/2020 Physician(s): Alberto Bello M.D. Diagnosis: Source of Specimen: Imaged Thinprep Pap Test plus HPV - Activities Attendant Cytologic Material Specimen Adequacy: - Satisfactory for evaluation; endocervical/transformation zone component present General Category: - Negative for intraepithelial lesion or malignancy JEANIE Hollis(ASCP) Report Electronically Reviewed and Signed Out By JEANIE Hollis(ASCP) 06/06/2020 14:17:44 Addenda: HPV RNA Test Interpretation NEGATIVE for types 16, 18, 31, 33, 35, 39, 45, 51, 52, 56, 58, 59, 66 and 68. Test performed utilizing Gen-Probe Aptima assay. JEANIE Sun(ASCP) Report Electronically Reviewed and Signed Out By JEANIE Sun(ASC) 06/05/2020 14:34:07 Specimen(s) Received: A: Imaged Thinprep Pap Test plus HPV - Activities Attendant Cytologic Material Clinical History: Last Menstrual Period: unknown The Pap test is a screening test used to aid in the detection of cervical cancer and its precursors. It should not be the sole means by which malignant and premalignant lesions are diagnosed. Both false negative and false positive results may occur. It also has poor sensitivity for the detection of endometrial lesions and should not be used to evaluate suspected endometrial abnormalities. For these reasons it is most important to obtain Pap tests at regular intervals. The performance characteristics of some immunohistochemical stains, fluorescence in-situ hybridization tests and immunophenotyping by flow cytometry cited in this report (if any) were determined by the Surgical Pathology Department at [facility] as part of an ongoing quality rep program and in compliance with federally mandated regulations drawn from the Clinical Laboratory Improvement Act of 1988 (CLIA '88). Some of these tests rely on the use of analyte specific reagents and are subject to specific labeling requirements by the US Food and Drug Administration. Such diagnostic tests may only be performed in a facility that is certified by the Department of Health and Human Services as a high complexity laboratory under CLIA '88. The FDA has determined that such clearance or approval is not necessary. This test is used for clinical purposes. It should not be regarded as investigational or for research. Nevertheless, federal rules concerning the medical use of analyte specific reagents require that the following disclaimer be attached to the report: This test was developed and its performance characteristics determined by the Surgical Pathology Department [facility]. It has not been cleared or approved by the U. S. Food and Drug Administration. Kade Montaño MD LAB CYTOLOGY ORDERABLES Final Result from Last 3 Months or Most Recently Relevant to Health Maintenance Insurance Advance Directives For more information, please contact: [phone] * Full Code (Latest Code Status on File) Date Activated Date Inactivated Comments 11/27/2022 2:46 AM 11/28/2022 9:26 PM * Full Code Date Activated Date Inactivated Comments 07/25/2020 11:43 AM 07/25/2020 5:20 PM * Full Code Date Activated Date Inactivated Comments 07/25/2020 11:14 AM 07/25/2020 11:43 AM * Full Code Date Activated Date Inactivated Comments 04/19/2018 7:36 PM 04/21/2018 4:09 PM * Full Code Date Activated Date Inactivated Comments 04/19/2018 7:12 AM 04/19/2018 7:36 PM Full CPR in case of cardiopulmonary arrest Care Teams Traffic Administrator Relationship Specialty Start Date End Date Kade Montaño MD [address] [facility] [address] [place] [address] PCP - General Family Medicine 04/19/20 Alem Dan NP [address] [address] Nurse Practitioner Family Medicine 04/19/20 Eulalio Garcias MD [address] [facility] [address] [place] [address] Referring Physician Obstetrics and Gynecology 04/19/20 Elissa Arteaga PT Physical Therapist Physical Therapy 12/24/21
--- OUTSIDE RECORDS SUMMARY | 2025-04-19 09:47 | XMS_ITS | Patient Health Record ---
Author Organization Formerly [facility] Address [address] [place] [address] Care Team Providers Care Engagement Lead Name Role Phone Sae Allen Primary Care Provider [employer], [facility] Unavailable U navailable Allergies No Known Allergies Reason For Referral No Information Medications Medication SIG (Take, Route, Frequency, Duration) Notes Start Date End Date Status Propranolol HCl 10 MG 1/2 - 1 [...] e a day; Duration: 30 days Active FLUoxetine HCl 40 MG 1 capsule Orally [...] a day; Duration: 30 days 09/17/2022 Active Social History Tobacco Use: Social History Observation Description Date Details (start date - stop date) Current Smoker NA - NA Sex Assigned At : Social History Observation Description Sex Assigned At Female Dont use, Tobacco Use/Smoking Question Answer Notes Are you a current every day smoker Additional Findings: Tobacco User e-Cigarette Alcohol Screen (Audit-C) Question Answer Notes Did you have a drink containing alcohol in the p ast year? Yes Section Notes: Family History: Patient hakan bear her mother and sister have depression and anxiety. Patient denies any family history of suicide. Patient report her mother and maternal grandfather are alcoholics. However, patient reports her maternal grandfather from liver failfure resulting from his alcoholism. Family History: Patient hakan bear her mother and sister have depression and anxiety. Patient denies any family history of suicide. Patient report her mother and maternal grandfather are alcoholics. However, patient reports her maternal grandfather from liver failfure resulting from his alcoholism. Family History: Patient hakan bear her mother and sister have depression and anxiety. Patient denies any family history of suicide. Patient report her mother and maternal grandfather are alcoholics. However, patient reports her maternal grandfather from liver failfure resulting from his alcoholism. Family History: Patient hakan bear her mother and sister have depression and anxiety. Patient denies any family history of suicide. Patient report her mother and maternal grandfather are alcoholics. However, patient reports her maternal grandfather from liver failfure resulting from his alcoholism. Family History: Patient hakan bear her mother and sister have depression and anxiety. Patient denies any family history of suicide. Patient report her mother and maternal grandfather are alcoholics. However, patient reports her maternal grandfather from liver failfure resulting from his alcoholism. Family History: Patient hakan bear her mother and sister have depression and anxiety. Patient denies any family history of suicide. Patient report her mother and maternal grandfather are alcoholics. However, patient reports her maternal grandfather from liver failfure resulting from his alcoholism. Family History: Patient hakan bear her mother and sister have depression and anxiety. Patient denies any family history of suicide. Patient report her mother and maternal grandfather are alcoholics. However, patient reports her maternal grandfather from liver failfure resulting from his alcoholism. Family History: Patient hakan bear her mother and sister have depression and anxiety. Patient denies any family history of suicide. Patient report her mother and maternal grandfather are alcoholics. However, patient reports her maternal grandfather from liver failfure resulting from his alcoholism. Family History: Patient hakan bear her mother and sister have depression and anxiety. Patient denies any family history of suicide. Patient report her mother and maternal grandfather are alcoholics. However, patient reports her maternal grandfather from liver failfure resulting from his alcoholism. 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 differential substance induced mood disorder versus MDD with mixed features Problem Overweight (124145497) Over weight (E66.3) Active confirmed Problem Alcohol use disorder (1411566562) Alcohol use disorder (F10.99) Active confirmed Problem Nightmares (161771280) Nightmares (F51.5) Active confirmed Problem Depressed bipolar I disorder (56763599) Bipolar affective disorder, current episode depressed, current episode severity unspecified (F31.30) Active confirmed versus MDD versus cluster B Problem Chronic alcoholism in remission (disorder) (143005143) Alcohol use disorder, severe, in early remission (F10.21) Active confirmed Problem Grief (085532868) Grief (F43.21) Active confirmed Problem 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) Active confirmed Vital Signs Heart Rate 72 /min 03/10/2025 Respiratory Rate 16 /min 03/10/2025 Oximetry 100 % 03/10/2025 Blood pressure diastolic 68 mm Hg 03/10/2025 Height 67 in 03/10/2025 Blood pressure systolic 122 mm Hg 03/10/2025 Weight 198.4 lbs 03/10/2025 BMI 31.07 kg/m2 03/10/2025 Encounters Encounter Location Date Provider Diagnosis [address] [place] [address] 04/21/2024 Sae Allen Bipolar 1 disorder F31.9 ; Generalized anxiety disorder F41.1 and Alcohol use disorder in remission F10.[address] [place] [address] 03/10/2025 Sae Allen Over weight E66.3 ; Bipolar 1 disorder F31.9 ; Generalized anxiety disorder F41.1 and Shift work sleep disorder G47.[address] [place] [address] 04/18/2025 Sae Allen Bipolar 1 disorder F31.9 ; Over weight E66.3 ; Generalized anxiety disorder F41.1 and Shift work sleep disorder G47.[address], [place] [address] 04/12/2025 Sae Allen Assessments Encounter Date Diagnosis (ICD Code) Assessment Notes Treatment Notes Treatment Clinical Notes Section Notes 04/21/2024 Generalized anxiety disorder (ICD-10 - F41.1) 04/21/2024 Bipolar 1 disorder (ICD-10 - F31.9) History of diagnosis. differential substance induced mood disorder versus MDD with mixed features 03/10/2025 Bipolar 1 disorder (ICD-10 - F31.9) History of diagnosis. differential substance induced mood disorder versus MDD with mixed features Client re-establishin g care after nearly a year of absence. Has not been taking mood stabilizer and has been having some ups/downs. Wants to re-trial lurasidone. Currently sober. Encouraged client to consider celebrate recovery or AA or another group support setting. Hydroxyzine discontinued due to fatigue. 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 Struggles to wake up and get going, drinking a lot of coffee (4+ cups). Discussed a trial of modafinil for shift work sleep disorder to get more in balance. Client agreeable to trial after risk versus benefit discussed. No other changes to treatment plan. 03/10/2025 Over weight (ICD-10 - E66.3) Client re-establishin g care after nearly a year of absence. Has not been taking mood stabilizer and has been having some ups/downs. Wants to re-trial lurasidone. Currently sober. Encouraged client to consider celebrate recovery or AA or another group support setting. Hydroxyzine discontinued due to fatigue. 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 Struggles to wake up and get going, drinking a lot of coffee (4+ cups). Discussed a trial of modafinil for shift work sleep disorder to get more in balance. Client agreeable to trial after risk versus benefit discussed. No other changes to treatment plan. 04/18/2025 Bipolar 1 disorder (ICD-10 - F31.9) [...] office should rash occur. Client verbalizes understanding. 04/21/2024 Alcohol use disorder in remission (ICD-10 - F10.91) 03/10/2025 Generalized anxiety disorder (ICD-10 - F41.1) Client re-establishin g care after nearly a year of absence. Has not been taking mood stabilizer and has been having some ups/downs. Wants to re-trial lurasidone. Currently sober. Encouraged client to consider celebrate recovery or AA or another group support setting. Hydroxyzine discontinued due to fatigue. 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 Struggles to wake up and get going, drinking a lot of coffee (4+ cups). Discussed a trial of modafinil for shift work sleep disorder to get more in balance. Client agreeable to trial after risk versus benefit discussed. No other changes to treatment plan. 03/10/2025 Shift work sleep disorder (ICD-10 - G47.26) Client re-establishin g care after nearly a year of absence. Has not been taking mood stabilizer and has been having some ups/downs. Wants to re-trial lurasidone. Currently sober. Encouraged client to consider celebrate recovery or AA or another group support setting. Hydroxyzine discontinued due to fatigue. 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 Struggles to wake up and get going, drinking a lot of coffee (4+ cups). Discussed a trial of modafinil for shift work sleep disorder to get more in balance. Client agreeable to trial after risk versus benefit discussed. No other changes to treatment plan. 04/18/2025 Generalized anxiety disorder (ICD-10 - F41.1) [...] office should rash occur. Client verbalizes understanding. 04/21/2024 Other Discussed sleep hygiene and caffeine intake with encouragement to limit electronic devices an hour before bed and to limit caffeine after 3:00pm. Exercise benefits for mood and health discussed. Psychoeducation regarding psychiatric illness provided. Client was educated about risks and benefits of medication, alternatives to medication, off label uses of medication, suicidal ideation with SSRIs, self-administratio n and compliance with medication along with how to safely store medication. Verbal informed consent obtained. Client agrees to return sooner if symptoms worsen or if suicidal or homicidal ideations occur. Client has the phone number to the 24-hour crisis line at [facility]. Questions addressed. Client verbalized understanding of all information and is agreeable to treatment plan. 03/10/2025 [place] issues noted. Discussed sleep hygiene and caffeine intake with encouragement to limit electronic devices an hour before bed and to limit caffeine after 3:00pm. Exercise benefits for mood and health discussed. Psychoeducation regarding psychiatric illness provided. Client was educated about risks and benefits of medication, alternatives to medication, off label uses of medication, suicidal ideation with SSRIs, self-administratio n and compliance with medication along with how to safely store medication. Verbal informed consent obtained. Client agrees to return sooner if symptoms worsen or if suicidal or homicidal ideations occur. Client has the phone number to the 24-hour crisis line at [facility]. Questions addressed. Client verbalized understanding of all information and is agreeable to treatment plan. Client re-establishin care after nearly a year of absence. Has not been taking mood stabilizer and has been having some ups/downs. Wants to re-trial lurasidone. Currently sober. Encouraged client to consider celebrate recovery or AA or another group support setting. Hydroxyzine discontinued due to fatigue. 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 Struggles to wake up and get going, drinking a lot of coffee (4+ cups). Discussed a trial of modafinil for shift work sleep disorder to get more in balance. Client agreeable to trial after risk versus benefit discussed. No other changes to treatment plan. 04/18/2025 Other Discussed sleep hygiene and caffeine intake with encouragement to limit electronic devices an hour before bed and to limit caffeine after 3:00pm. Exercise benefits for mood and health discussed. Psychoeducation regarding psychiatric illness provided. Client was educated about risks and benefits of medication, alternatives to medication, off label uses of medication, suicidal ideation with SSRIs, self-administratio n and compliance with medication along with how to safely store medication. Verbal informed consent obtained. Client agrees to return sooner if symptoms worsen or if suicidal or homicidal ideations occur. Client has the phone number to the 24-hour crisis line at [facility]. Questions addressed. Client verbalized understanding of all [...] occur. Client verbalizes understanding. Plan Of Treatment Next Appt Details Provider Name:Sae doulgas, 05/16/2025 08:20:00 AM, [address], [place], [address], Insurance Providers Payer Name Payer Address Payer Phone Subscriber Number Group Number Insured Name Patient Relationship to Insured Coverage Start Date Coverage End Date [facility] [address] [place] [address] [id number] Jocelyn Berg Self - patient is the insured 7 5 MEDICA[employer] [address] [place] [address] [id number] Jocelyn Berg Self - patient is the insured 5 5 [employer] [address] [place] [address] [id number] Jocelyn Berg Self - patient is the insured 5 [employer] [address] [place] [address] [id number] Jocelyn Berg Self - patient is the insured 7 5 [employer] [address] [place] [address] [id number] Jocelyn Berg Self - patient is the insured 0 5 [employer] [address] [place] [address] [id number] Jocelyn Berg Self - patient is the insured 5 Medical (General) History Medical History History ICD Code Anxiety disorder, unspecified F41.9 Alcohol use disorder F10.99 Major depression F32.9 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
[2025-04-19 10:07] LABS: EDUAAPPEAR Clear; EDUABILI Negative (Negative); EDUABLOOD Trace (Negative); EDUACOLOR1 Light/Pale; EDUAGLUCOSE Negative (Negative); EDUAKETONE Negative (Negative); EDUALEUKO Negative (Negative); EDUANITRATE Negative (Negative); EDUAPH 7.0; EDUAPROTEIN Negative (Negative); EDUASPGRAVITY 1.015; EDUAUROBILI 0.2
--- NOTE | 2025-04-19 10:13 | ED_ITS ---
HPI - General Adult General Chief complaint: Urogenital-Female Stated complaint: Urinary Problem Source: patient Mode of arrival: ambulatory Limitations: no limitations History of Present Illness HPI narrative: Patient presents for evaluation right lower back pain. She states she has had symptoms for several months but her pain worsened last night. Pain is constant, aching, 6/10 in severity. Pain does radiate into the right side of her abdomen. She reports urinary frequency and incomplete emptying. She denies any dysuria, hematuria, vaginal bleeding or discharge. LMP 5 days ago. She contacted her OBGYN regarding her symptoms and she was advised to go to urgent care for evaluation. 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 Surgical history positive for tubal ligation. She states she was given a prescription for meloxicam, which is a new medication for her, and she plans to pick it up today at 1:00 p.m. Related Data Home Medications ?Medication ?Instructions ?Recorded ?Confirmed ?Last Taken ?Type fluoxetine 20 mg capsule (Prozac) 20 mg PO DAILY 08/1610/09/19 09/07/19 06:00 History buspirone 10 mg tablet mg 05/29/23 Unknown History lurasidone 20 mg tablet mg 05/29/23 Unknown History naltrexone 50 mg tablet mg 05/29/23 Unknown History Allergies Allergy/AdvReac Type Severity Reaction Status Date / Time No Known Allergies Allergy Verified 10/09/19 13:41 Review of Systems Review of Systems: CONSTITUTIONAL: Denies fever, chills, or sweats. EYES: Denies visual changes, redness, or discharge. ENT: Denies rhinorrhea, congestion, sore throat, or otalgia. CARDIOVASCULAR: Denies chest pain, palpitations, or edema. RESPIRATORY: Denies cough or dyspnea. GASTROINTESTINAL:Reports some right sided abdominal pain that radiates from right lower back. Reports nausea. Denies vomiting or diarrhea. GENITOURINARY: Reports urinary frequency and incomplete emptying. Denies dysuria or hematuria. Denies vaginal bleeding/discharge SKIN: Denies rash or itching. MUSCULOSKELETAL: Reports right lower back pain. Denies joint pain, or myalgia. NEUROLOGIC: Denies headache, numbness, dizziness, or weakness. PSYCHIATRIC: Denies anxiety or depression. [facility] Past Medical History Medical History Anxiety Obesity Anemia Surgical History Surgical History History of tubal ligation Family History Family History Grandparent Diabetes mellitus Hypertension Sibling Diabetes mellitus Hypertension Mother Hypertension Social History Social History Smoking status: Current every day smoker Tobacco type: e-cigarettes/vaping Substance use: never Living arrangements: with family Gender identity (if verbalized by the patient): Female Sexual Orientation (if Verbalized by the Patient): Straight or Heterosexual Spiritual care concerns: No Exam Narrative: GENERAL: Well-appearing, well-nourished, and in no acute distress. HEAD: Normocephalic, atraumatic. EYES: PERRLA and EOMI. ENT: Nares clear, no rhinorrhea or epistaxis. Mucous membranes moist. Oropharynx without tonsillar hypertrophy exudate or other lesions. Bilateral TMs pearly muir nonbulging NECK: Supple. No adenopathy or masses. No carotid bruits or JVD CHEST: Clear to auscultation. No respiratory distress. No wheezes rales or rhonchi HEART: Regular rate and rhythm. No murmur heard. Normal peripheral pulses. ABDOMEN: Soft, nontender, nondistended, normal active bowel sounds. BACK: No CVA tenderness EXTREMITIES: Normal range of motion. No edema. SKIN: Warm, dry, no rash. NEURO: No focal deficits. Alert and oriented x3. PSYCH: Normal mood and affect. Course Course Emergency Course: This is a 34-year-old female who presented for evaluation of right lower back pain. She was concerned she has UTI. There is no evidence of such based on urine results today. She does have a trace amount of blood. I did offer to transfer her to the ER to rule out kidney stones with CT imaging. She declined. I think this is reasonable as she actually looks quite comfortable. She would prefer to follow-up with her OBGYN your primary care provider. She ready has a prescription for meloxicam. She was advised to go to the emergency department for worse symptoms worsen. Patient in agreement with plan of care Level of Care: Express Care Visit Vital Signs Vital signs: Vital Signs Temperature 36.9 C 04/19/25 09:36 Pulse Rate 80 04/19/25 09:36 Respiratory Rate 16 04/19/25 09:36 Blood Pressure 135/79 04/19/25 09:36 Pulse Oximetry 100 04/19/25 09:36 Oxygen Delivery Room Air 04/19/25 09:36 Temperature 36.9 C 04/19/25 09:36 Pulse Rate 80 04/19/25 09:36 Respiratory Rate 16 04/19/25 09:36 Blood Pressure 135/79 04/19/25 09:36 Pulse Oximetry 100 04/19/25 09:36 Oxygen Delivery Room Air 04/19/25 09:36 Medical Decision Making Vital Signs Vital Signs: Vital Signs Temperature 36.9 C 04/19/25 09:36 Pulse Rate 80 04/19/25 09:36 Respiratory Rate 16 04/19/25 09:36 Blood Pressure 135/79 04/19/25 09:36 Pulse Oximetry 100 04/19/25 09:36 Oxygen Delivery Room Air 04/19/25 09:36 Temperature 36.9 C 04/19/25 09:36 Pulse Rate 80 04/19/25 09:36 Respiratory Rate 16 04/19/25 09:36 Blood Pressure 135/79 04/19/25 09:36 Pulse Oximetry 100 04/19/25 09:36 Oxygen Delivery Room Air 04/19/25 09:36 Lab Data Labs: Lab Results 04/19/25 Range/Units 10:05 POC Urine Color Light/pale POC Urine Clarity Clear POC Urine pH 7.0 POC Ur Specif [place] 1.015 POC Urine Protein Negative (Negative) POC Ur Glucose (UA) Negative (Negative) POC Urine Ketones Negative (Negative) POC Urine Blood Trace (Negative) POC Urine Nitrite Negative (Negative) POC Urine Bilirubin Negative (Negative) POC Urine Urobilinogen 0.2 POC U Leukocyte Esteras Negative (Negative) Discharge Plan Discharge Clinical Impression: Low back pain, Hematuria, microscopic Patient Disposition: Home Condition: Stable Instructions: Antibiotic Form, Hematuria (ED), Back Pain (ED) Patient Language: Citizen Of [place] Prescriptions: No Action naltrexone 50 mg tablet buspirone 10 mg tablet lurasidone 20 mg tablet fluoxetine [Prozac] 20 mg Capsule 20 mg PO DAILY Follow-up/Referrals: Danyel,Kade Sales MD [Primary Care Provider, Unknown] Time of Disposition: 10:12
== END 2025-04-19 10:20 | disposition home or self-care (01) ==
PROVIDERS: Emergency Provider Nurse Practitioner; PCP Family Medicine
DX: R31.29 Other microscopic hematuria (principal); F41.9 Anxiety disorder, unspecified; F17.290 Nicotine dependence, other tobacco product, uncomplicated; M54.50 Low back pain, unspecified
CPT/HCPCS: 81003; 99212; G0463

== ENCOUNTER 2025-07-27 19:18 | Emergency (ER) | payer OTHER, SELFPAY ==
--- OUTSIDE RECORDS SUMMARY | 2024-03-23 13:20 | XMS_ITS ---
Author Organization [facility] Address [address] [place] [address] Phone [phone] Care Team Providers Care Housekeeping Aid Name Role Phone Alejandro SKIN DRIER Sae Primary Care Provider [employer], [facility] Unavailable U navailable REASON FOR VISIT 3 Month Psych F/U & Med Refill Medications Medication SIG (Take, Route, Frequency, Duration) Notes Start Date End Date Diagnosis (ICD Code) Status Lurasidone HCl 20 MG Tablet 1 tablet in the evening with food Orally Once a day; Duration: 30 days Bipolar 1 disorder (ICD_10 - F31.9) Active Ondansetron HCl 4 MG Tablet 1 tablet Orally Once a day; Duration: 30 days 05/28/2023 Nausea (ICD_10 - R11.0) Active busPIRone HCl 10 MG Tablet 1 tablet Orally Twice a day; Duration: 30 days 09/17/2022 04/08/2024 Generalized anxiety disorder (ICD_10 - F41.1) Active PROzac 40 MG Capsule 1 capsule Orally Once a day; Duration: 30 days Bipolar 1 disorder (ICD_10 - F31.9) Active hydrOXYzine HCl 25 MG Tablet 1 tablet Orally at night for sleep as needed; Duration: 30 days Generalized anxiety disorder (ICD_10 - F41.1) Active Social History Sex Observation Social History Observation Description Sex Observation Female Sexual Orientation Social History Observation Description Sexual Orientation Straight or heterose xual Gender Identity Social History Observation Description Gender Identity Female Encounters Date Time Type Facility Location Provider Diagnosis 03/23/2024 01:20 PM Office Visit [facility] [address] [facility] 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 3 Month Psych F/U & Med Refill. * Screening: * * Medical History: * Medications: T aking Ondansetron HCl 4 MG Tablet 1 tablet Orally Once a day , Taking Lurasidone HCl 20 MG Tablet 1 tablet in the evening with food Orally Once a day , Taking PROzac 40 MG Capsule 1 capsule Orally Once a day , Taking busPIRone HCl 10 MG Tablet 1 tablet Orally Twice a day , stop date 04/08/2024, Taking hydrOXYzine HCl 25 MG Tablet 1 tablet Orally at night for sleep as needed Objective: * Vitals: Assessment: Plan: * Treatment: * * Electronic signature of Jose Allen APRN, [id number] on 07/27/2025 at 07:21 PM DIRECTOR OF THE BIOPHYSICS FACILITY Sign off status: Pending * Provider: Eliz Allen DNP, PMHNP- Date: 0 03/23/2024 Generated for Mariely lares/Beni/Kip on: 1 09/27/2024 07:21 PM DIRECTOR OF THE BIOPHYSICS FACILITY
--- OUTSIDE RECORDS SUMMARY | 2024-04-12 09:20 | XMS_ITS ---
Author Organization [facility] Address [address] [place] [address] Phone [phone] Care Team Providers Care Optics Engineer Name Role Phone Allen CLINICAL TRAINER Sae Primary Care Provider [place] [facility], [facility] Unavailable U navailable REASON FOR VISIT 3 Month Psych F/U & Med Refill Medications Medication SIG (Take, Route, Frequency, Duration) Notes Start Date End Date Diagnosis (ICD Code) Status Ondansetron HCl 4 MG Tablet 1 tablet Orally Once a day; Duration: 30 days 05/28/2023 Nausea (ICD_10 - R11.0) Active PROzac 40 MG Capsule 1 capsule Orally Once a day; Duration: 30 days Bipolar 1 disorder (ICD_10 - F31.9) Active Lurasidone HCl 20 MG Tablet 1 tablet [...] Date Time Type Facility Location Provider Diagnosis 04/12/2024 09:20 AM [facility] [address] [facility] [place] [address] Sae Allen Plan Of Treatment Next Appt Details Provider Name:Sae Bella , 08/02/2025 09:00:00 AM, [address] [facility], [place], [address], Medical (General) History Medical History History ICD Code Anxiety disorder, unspecified F41.9 Alcohol use disorder F10.99 Major depression F32.9 Other senior care (current) drug therapy Z 79.899 Anxiety F41.9 anal fissure Surgical History Surgery Date(Month/Year) latertal sphincterotomy aug 2020 Hospitalization History Reason Date(Month/Year) Kettler suicide attempt 2016 [facility] - 03/2020 Progress Notes * Jocelyn GORDONDOB:[birth year] (34 yo F)Acc No.[id number]:04/12/2024 UNLOCKED PROGRESS NOTE Patient: Berna WINSLOWica Provider: Eliz Allen DNP, [facility]- :1990 A ge:33 Y S ex:Female Date:04/12/2024 Address:[address] [place], [place] [id number] Subjective: * Chief Complaints: * 1 . [...] capsule Orally Once a day , Taking hydrOXYzine HCl 25 MG Tablet 1 tablet Orally at night for sleep as needed Objective: * Vitals: Assessment: Plan: * Treatment: * * Electronic signature of Jose Allen APRN, [id number] on 07/27/2025 at 07:21 PM NUCLEAR PLANT CONSTRUCTION WORKER Sign off status: Pending * [facility]: [facility] Date: 0 04/12/2024 Generated for Mariely lares/Beni/eTnaveen on: 1 09/27/2024 07:21 PM NUCLEAR PLANT CONSTRUCTION WORKER
--- OUTSIDE RECORDS SUMMARY | 2024-06-23 14:40 | XMS_ITS ---
Author Organization Formerly [facility] Address [address] [place] [address] Phone [phone] Care Team Providers Care Dye Worker Name Role Phone Sae Allen APRN Primary Care Provider Mira [facility], [facility] Unavailable U navailable REASON FOR VISIT 6-8 week follow up Medications Medication SIG (Take, Route, Frequency, Duration) Notes Start Date End Date Diagnosis (ICD Code) Status hydrOXYzine HCl 25 MG Tablet 1 tablet Orally at night for sleep as needed; Duration: 30 days Generalized anxiety disorder (ICD_10 - F41.1) Active busPIRone HCl 10 MG Tablet 1 tablet Orally Twice a day; Duration: 30 days 09/17/2022 Generalized anxiety disorder (ICD_10 - F41.1) Active Lurasidone HCl 20 MG Tablet 1 tablet in the evening with food Orally Once a day; Duration: 30 days Bipolar 1 disorder (ICD_10 - F31.9) Active PROzac 40 MG Capsule 1 capsule Orally Once a day; Duration: 30 days Bipolar 1 disorder (ICD_10 - F31.9) Active Ondansetron HCl 4 MG Tablet 1 tablet Orally Once a day; Duration: 30 days 05/28/2023 Nausea (ICD_10 - R11.0) Active Social History Sex Observation Social History Observation Description Sex Observation Female Sexual Orientation Social History Observation Description Sexual Orientation Straight or heterose xual Gender Identity Social History Observation Description Gender Identity Female Encounters Date Time Type Facility Location Provider Diagnosis 06/23/2024 02:40 PM Office Visit [facility] [address] [place] [address] Sae Allen Plan Of Treatment Next Appt Details Provider Name:Sae Bella , 08/02/2025 09:00:00 AM, [address] [facility] , [place], [address], Medical (General) History Medical History History ICD Code Anxiety disorder, unspecified F41.9 Alcohol use disorder F10.99 Major depression F32.9 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 6-8 week follow up. * Screening: * * Medical History: * [...] Orally at night for sleep as needed , Taking busPIRone HCl 10 MG Tablet 1 tablet Orally Twice a day Objective: * Vitals: Assessment: Plan: * Treatment: * Recommended Wellness and Pre vention Guidelines: * S tatus A lert L ast Done N ext Due A ction Taken N ONCOMPLIANT B peggy Mass Index 0 03/27/2022 1 - - N ONCOMPLIANT C ervical cancer screening - 1 - - N ONCOMPLIANT H IV screening - 1 - - N ONCOMPLIANT S moking cessation intervention 0 08/28/2022 1 - - * * Electronic signature of Jose Allen , LATHING SUPERVISOR, [id number] on 07/27/2025 at 07:21 PM RESOLUTION SPECIALIST Sign off status: Pending * Provider: Eliz Allen DNP, PMHNP-BC Date: 1 Generated for Mariely lares/Beni/Kip on: 09/27/2024 07:21 PM RESOLUTION SPECIALIST
--- OUTSIDE RECORDS SUMMARY | 2024-07-13 10:40 | XMS_ITS ---
Author Organization [facility] Address [address] [place] [address] Phone [phone] Care Team Providers Care Sales Development Associate Name Role Phone Sae Allen APRN Primary Care Provider [phone] [facility], [facility] Unavailable U navailable REASON FOR VISIT 2 Month Psych F/U & Med Refill Social History Sex Observation Social History Observation Description Sex Observation Female Sexual Orientation Social History Observation Description Sexual Orientation Straight or heterose xual Gender Identity Social History Observation Description Gender Identity Female Encounters Date Time Type Facility Location Provider Diagnosis 07/13/2024 10:40 AM Office Visit [place] [address] [place] [address] Sae Allen Plan Of Treatment Next Appt Details Provider Name:Sae Bella , 08/02/2025 09:00:00 AM, [address], [place], [address], Medical (General) History Medical History History ICD Code Anxiety disorder, unspecified F41.9 Alcohol use disorder F10.99 Major depression F32.9 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 2 Month Psych F/U & Med Refill. * Screening: * * Medical History: Objective: * Vitals: Assessment: Plan: * Treatment: * Recommended Wellness and Pre vention Guidelines: * S tatus A lert L ast Done N ext Due A ction Taken N ONCOMPLIANT B peggy Mass Index 0 03/27/2022 1 09/12/2023 - - N ONCOMPLIANT C ervical cancer screening - 1 09/12/2023 - - N ONCOMPLIANT H IV screening - 1 09/12/2023 - - N ONCOMPLIANT S moking cessation intervention 0 08/28/2022 1 09/12/2023 - - * * Electronic signature of Jose Allen , BRIDGE DESIGN ENGINEER, [id number] on 07/27/2025 at 07:20 PM PARQUET FLOOR LAYER'S HELPER Sign off status: Pending * Provider: Eliz Allen DNP, [facility]- Date: 09/12/2023 Generated for Mariely lares/Beni/eTransmitting on: 09/27/2024 07:20 PM PARQUET FLOOR LAYER'S HELPER
--- OUTSIDE RECORDS SUMMARY | 2025-04-06 10:40 | XMS_ITS ---
Author Organization [facility] Address [address] [place] [address] Phone [phone] Care Team Providers Care Natural Resources Specialist Name Role Phone Sae Allen APRN Primary Care Provider [phone] [facility], [facility] Unavailable U navailable REASON FOR VISIT 4-6 week F/U Social History Sex Observation Social History Observation Description Sex Observation Female Sexual Orientation Social History Observation Description Sexual Orientation Straight or heterose xual Gender Identity Social History Observation Description Gender Identity Female Encounters Date Time Type Facility Location Provider Diagnosis 04/06/2025 10:40 AM Office Visit [place] [address] [place] [address] Sae Allen Plan Of Treatment Next Appt Details Provider Name:Sae Bella , 08/02/2025 09:00:00 AM, [address], [place], [address], Medical (General) History Medical History History ICD Code Anxiety disorder, unspecified F41.9 Alcohol use disorder F10.99 Major depression F32.9 Other alf (current) drug therapy Z 79.899 Anxiety F41.9 anal fissure Surgical History Surgery Date(Month/Year) latertal sphincterotomy aug 2020 Hospitalization History Reason Date(Month/Year) Kettler suicide attempt 2016 [facility] - [place] 03/2020 Progress Notes * Jocelyn GORDONDOB:[birth year] (34 yo F)Acc No.[id number]:04/06/2025 UNLOCKED PROGRESS NOTE Patient: Jocelyn WINSLOW Provider: Eliz Allen DNP, [facility]- :1990 A ge:34 Y S ex:Female Date:04/06/2025 Address:[address] [place], [place] [id number] Subjective: * Chief Complaints: * 1 . 4-6 week F/U. * Screening: * * Medical History: Objective: * Vitals: Assessment: Plan: * Treatment: * * Electronic signature of Jose Allen , AUTO BODY REPAIR TEACHER, [id number] on 07/27/2025 at 07:20 PM ADVENTURE GUIDE Sign off status: Pending * Provider: Eliz Allen DNP, [facility]- Date: 0 04/06/2025 Generated for Mariely lares/Beni/eTransmitting on: 1 09/27/2024 07:20 PM ADVENTURE GUIDE
--- OUTSIDE RECORDS SUMMARY | 2025-05-16 08:20 | XMS_ITS ---
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 Role Phone Sae Allen APRN Primary Care Provider [phone] [facility], [facility] Unavailable U navailable REASON FOR VISIT LM to R/S-mlr 4 week F/U Social History Sex Observation Social History Observation Description Sex Observation Female Sexual Orientation Social History Observation Description Sexual Orientation Straight or heterose xual Gender Identity Social History Observation Description Gender Identity Female Encounters Date Time Type Facility Location Provider Diagnosis 05/16/2025 08:20 AM Office Visit [place] [address] [place] [address] Sae Allen Plan Of Treatment Next Appt Details Provider Name:Sae Bella , 08/02/2025 09:00:00 AM[facility] [address] [place], [address], Medical (General) History Medical History History ICD Code Anxiety disorder, unspecified F41.9 Alcohol use disorder F10.99 Major depression F32.9 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 LM to R/S-mlr 4 week F/U. * Screening: * * Medical History: Objective: * Vitals: Assessment: Plan: * Treatment: * * Electronic signature of Jose Allen , STAFF TRAINING AND DEVELOPMENT MANAGER, [id number] on 07/27/2025 at 07:20 PM PAPER REWINDER OPERATOR Sign off status: Pending * Provider: Eliz Allen DNP, [facility]- Date: 0 05/16/2025 Generated for Mariely lares/Beni/eTransmitting on: 1 09/27/2024 07:20 PM PAPER REWINDER OPERATOR
--- OUTSIDE RECORDS SUMMARY | 2025-07-27 19:20 | XMS_ITS | Encounter Summary ---
Author Organization [facility] Healthcare Address [address] [place] [address] Care Team Providers Care Gift Consultant Name Role Phone Alem Dan NP Unavailable [phone] Eulalio Garcias MD Unavailable [phone] Elissa Arteaga PT Unavailable Unavailable Kade Montaño MD Primary Care Provider Reason for Visit * Reason Onset Date Comments Referral Request 07/01/2025 Encounter Details Date Type Department Care Team (Late st Contact Info) Description 07/01/2025 Telephone [facility] Primary Care at [address] [address] Kade Montaño MD [address] [place] [address] [address] [place] [address] Referral Request Social History Tobacco Use Types Packs/Day Years Used Date Smoking Tobacco: Former Cigarettes Q uit: 08/01/2017 Smokeless Tobacco: Never Comments:Smoking History Pac ks/day: 10 Cigarettes Alcohol Use Standard Drinks/Week Comments [...] 11/27/2022 How often do you attend chur ch or yazdanism services? Never 11/27/2022 Do you belong to any clubs o r organizations such as adventist groups, unions, fraternal or athletic groups, or [...] points, staff should administer the PHQ-9) 0 06/30/2025 [facility] of Occupat ional Health - Occupational Stress Questionnaire Answer Date Recorded [...] place to sleep or slept in a penitentiary (including now)? No 11/27/2022 Personal Safety Answer Date Recorded Have you ever been in or are you currently in a harmful physical or emotional relationship or is someone making you feel afraid or unsafe? 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 Just waiting on it to come through. TION ECONOMIST * Telephone Encounter - Rachel Lamar - 07/01/2025 3:03 PM CST Referral Provider Name: Dr. Adelfo Feliciano Specialty: Pain Management Address: [address] [place] [address], [address], Zip: [facility] [address] Diagnosis Code/Symptom/Reason Patient is being seen: Chronic right-sided low back pain without sciatica (M54.50,G89.29) Spondylolisthesis at L5-S1 level (M43.17) Date of Appointment: TBD, need insurance referral first NPI#: [id number] Tax ID#: Does not have Is insurance in chart up to date? Yes Additional Comments: Patient states Dr. Feliciano's office told them they needed an insurance referralbefore they could be scheduled. Does message need to be routed? Yes-Action Needed TION ECONOMIST documented in this encounter Plan of Treatment Not on file documented as of this encounter Visit Diagnoses Not on filedocumented in this encounter Care Teams Gift Consultant Relationship Specialty Start Date End Date Kade Montaño MD [address] [facility] [address] [place] [address] PCP - General Family Medicine 04/19/20 Alem Dan NP [address] [place] [address] Nurse Practitioner Family Medicine 04/19/20 Eulalio Garcias MD [address] [facility] [address] [place] [address] Referring Physician Obstetrics and Gynecology 04/19/20 Elissa Arteaga PT Physical Therapist Physical Therapy 12/24/21 documented as of this encounter
--- OUTSIDE RECORDS SUMMARY | 2025-07-27 19:20 | XMS_ITS | Patient Health Record ---
Author Organization [facility] Address [address] [place] [address] Phone [phone] Care Team Providers Care Svp Operations Name Role Phone Sae Allen APRN Primary Care Provider [phone] [employer], [facility] Unavailable U navailable Allergies No Known Allergies Reason For Referral No Information Medications Medication SIG (Take, Route, Frequency, Duration) Notes Start Date End Date Diagnosis (ICD Code) Status Ondansetron HCl 4 MG Tablet 1 tablet Orally Once a day; Duration: 30 days 05/28/2023 Nausea (ICD_10 - R11.0) Not-Taking PROzac 40 MG Capsule 1 capsule Orally Once a day; Duration: 30 days Bipolar 1 disorder (ICD_10 - F31.9) Active Propranolol HCl 20 MG Tablet TAKE 1/2 TO 1 TABLET BY MOUTH TWICE DAILY FOR ANXIETY OR INSOMNIA; Duration: 30 days Generalized anxiety disorder (ICD_10 - F41.1) Active lamoTRIgine 25 MG Tablet 1 tablet Orally twice a day; Duration: 30 days 04/18/2025 Bipolar 1 disorder (ICD_10 - F31.9) Active busPIRone HCl 10 MG Tablet 1 tablet Orally Twice a day; Duration: 30 days 09/17/2022 Generalized anxiety disorder (ICD_10 - F41.1) Active FLUoxetine HCl 40 MG Capsule 1 capsule Orally Once a day; Duration: 30 days 03/10/2025 Generalized anxiety disorder (ICD_10 - F41.1) Active Social History Tobacco Use: Social History Observation Description Date Details (start date - stop date) Never Smoker NA - NA Sex Observation Social History Observation Description Sex Observation Female Sexual Orientation Social History Observation Description Sexual Orientation Straight or heterose xual Gender Identity Social History Observation Description Gender Identity Female Social History Miscellaneous Social Info Question Answer Notes Method of learning: Preferred method of learning: Disc ussion,Demonstration Primary Social History Social Info Question Answer Notes Living Arrangement Is this a supportive environment? Yes Living Arrangement: Independent Living Single Question Alcohol Screening How many times in the past year have you had (4 for women, or 5 for men) or more drinks in a day? 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 Yes Drugs Have you used drugs other than those for medical reasons in the past 12 months? No Household: Social Info Question Answer Notes Household Marital status: Number of adults in household: 2 Number of children in household: 4 Tobacco Use: Social Info Question Answer Notes Dont use, Tobacco Use/Smoking Are you a current gunner ry day smoker Additional Findings: Tobacco User e-Cigarette Tobacco Control (Standard) Tobacco use: Nonsmoker Additional Details Category Social Info Options Details Miscellaneous Domestic violence: No Primary Social History Leisure: worki ng out Drugs/Alcohol: Do you smoke marijuana? De nies Do you drink alcohol? No- not cu rrently - 30 days sobert 10/18 Problems Problem Type SNOMED Code ICD Code Dates Problem Status W/U Status Risk Notes Problem Tobacco user (827614469) Nicotine dependence, unspecified, uncomplicated (F17.200) Added On:11/2022 Active confirmed Problem Generalized anxiety disorder (99425035) Generalized anxiety disorder (F41.1) Added On:02/2020 Active confirmed Problem Anxiety disorder (929399212) Anxiety disorder, unspecified (F41.9) Added On:03/2016 Active confirmed Problem Nausea (210161501) Nausea (R11.0) Added On:10/24 Active confirmed Problem Long-term current use of drug therapy (144909263) Other intermediate accountant (current) drug therapy (Z79.899) Added On:02/22 Active confirmed Problem Major depression (566077699) Major depression (F32.9) Added On:02/22 Onset Date: 016 Active confirmed Problem Anxiety (66256673) Anxiety (F41.9) Added On:12/2019 Active confirmed Problem Bipolar 1 disorder (842476676) Bipolar 1 disorder (F31.9) Added On:01/2020 Onset Date: 020 Active confirmed History of diagnosis. differential substance induced mood disorder versus MDD with mixed features Problem Overweight (501739475) Over weight (E66.3) Added On:02/22 Active confirmed Problem Alcohol use disorder (7452787179) Alcohol use disorder (F10.99) Added On:03/26 Active confirmed Problem Nightmares (526341302) Nightmares (F51.5) Added On:01/2020 Active confirmed Problem Depressed bipolar I disorder (06179739) Bipolar affective disorder, current episode depressed, current episode severity unspecified (F31.30) Added On:08/26 Active confirmed versus MDD versus cluster B Problem Chronic alcoholism in remission (disorder) (727577353) Alcohol use disorder, severe, in early remission (F10.21) Added On:06/25 Active confirmed Problem Grief (020494077) Grief (F43.21) Added On:11/24 Active confirmed Problem 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) Added On:02/22 Active confirmed Vital Signs Vital Sign Value Notes Appt Date Heart Rate 65 /min 06/23/2025 Temperature 97.6 degrees Fahrenheit 05/27 Respiratory Rate 16 /min 06/23/2025 Oximetry 100 % 06/23/2025 Blood pressure diastolic 86 mm Hg Height 67 inches in 06/23/2025 Blood pressure systolic 102 mm Hg 05/27 Weight 204.8 lbs lbs 06/23/2025 BMI 32.07 kg/m2 06/23/2025 Encounters Date Time Type Facility Location Provider Diagnosis 03/10/20 10:00 AM Office Visit, Est Pt., Level 4 (65331) [address] [address] Sae Allen Over weight E66.3 ; Bipolar 1 disorder F31.9 ; Generalized anxiety disorder F41.1 and Shift work sleep disorder G47.26 04/18/20 08:20 AM Telehealth Office Visit, Est Pt., Level 4 (64192) [address] [address] Sae Allen Bipolar 1 disorder F31.9 ; Over weight E66.3 ; Generalized anxiety disorder F41.1 and Shift work sleep disorder G47.26 06/23/20 08:20 AM Office Visit, Est Pt., Level 4 (10241) [address] [address] Sea Allen Over weight E66.3 ; Bipolar 1 disorder F31.9 and Generalized anxiety disorder F41.1 07/19/20 03:59 PM Telephone Encounter [address] [address] Sae Allen 04/12/20 10:48 AM Telephone Encounter [address] [address] Sae Allen 06/29/20 10:05 AM Telephone Encounter [address] [address] Sae Allen 07/26/20 11:16 AM Telephone Encounter [address] [address] Sae Allen Assessments Encounter Date Diagnosis (ICD Code) Assessment Notes Treatment Notes Section Notes 03/10/2025 Bipolar 1 disorder (ICD-10 - F31.9) History of diagnosis. differential substance induced mood disorder versus MDD with mixed features Client re-establishing care after nearly a year of absence. Has not been taking mood stabilizer and has been having some ups/downs. Wants to re-trial lurasidone. Currently sober. Encouraged client to consider celebrate recovery or AA or another group support setting. Hydroxyzine discontinued due to fatigue. 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 Struggles to wake up [...] office should rash occur. Client verbalizes understanding. 06/23/2025 Bipolar 1 disorder (ICD-10 - F31.9) History of diagnosis. differential substance induced mood disorder versus MDD with mixed features Client agreeable to retrial of lamotrigine (forgot to take daily) and increase in propranolol to address insomnia/anxiety. Wants to trial 20 mg propranolol at bedtime and continue 10 mg (1/2 tablet) during daytime. Has not had any side effects with any medications. Is starting sober group and has sponsor now. 03/10/2025 Over weight (ICD-10 - E66.3) Client re-establishing care after nearly a year of absence. Has not been taking mood stabilizer and has been having some ups/downs. Wants to re-trial lurasidone. Currently sober. Encouraged client to consider celebrate recovery or AA or another group support setting. Hydroxyzine discontinued due to fatigue. 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 Struggles to wake up and get going, drinking a lot of coffee (4+ cups). Discussed a trial of modafinil for shift work sleep disorder to get more in balance. Client agreeable to trial after risk versus benefit discussed. No other changes to treatment plan. 06/23/2025 Over weight (ICD-10 - E66.3) Client agreeable to retrial of lamotrigine (forgot to take daily) and increase in propranolol to address insomnia/anxiety. Wants to trial 20 mg propranolol at bedtime and continue 10 mg (1/2 tablet) during daytime. Has not had any side effects with any medications. Is starting sober group and has sponsor now. 04/18/2025 Over weight (ICD-10 - E66.3) Client [...] office should rash occur. Client verbalizes understanding. 06/23/2025 Generalized anxiety disorder (ICD-10 - F41.1) Client agreeable to retrial of lamotrigine (forgot to take daily) and increase in propranolol to address insomnia/anxiety. Wants to trial 20 mg propranolol at bedtime and continue 10 mg (1/2 tablet) during daytime. Has not had any side effects with any medications. Is starting sober group and has sponsor now. 03/10/2025 Generalized anxiety disorder (ICD-10 - F41.1) Client re-establishing care after nearly a year of absence. Has not been taking mood stabilizer and has been having some ups/downs. Wants to re-trial lurasidone. Currently sober. Encouraged client to consider celebrate recovery or AA or another group support setting. Hydroxyzine discontinued due to fatigue. 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 Struggles to wake up [...] office should rash occur. Client verbalizes understanding. 03/10/2025 Shift work sleep disorder (ICD-10 - G47.26) Client re-establishing care after nearly a year of absence. Has not been taking mood stabilizer and has been having some ups/downs. Wants to re-trial lurasidone. Currently sober. Encouraged client to consider celebrate recovery or AA or another group support setting. Hydroxyzine discontinued due to fatigue. 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 Struggles to wake up and get going, drinking a lot of coffee (4+ cups). Discussed a trial of modafinil for shift work sleep disorder to get more in balance. Client agreeable to trial after risk versus benefit discussed. No other changes to treatment plan. 04/18/2025 Shift work sleep disorder (ICD-10 - [...] office should rash occur. Client verbalizes understanding. 03[place]10/[place]25 [place] [...] number to the 24-hour crisis line at [facility]. Questions addressed. Client verbalized understanding of all information and is agreeable to treatment plan. Client re-establishing care after nearly a year of absence. Has not been taking mood stabilizer and has been having some ups/downs. Wants to re-trial lurasidone. Currently sober. Encouraged client to consider celebrate recovery or AA or another group support setting. Hydroxyzine discontinued due to fatigue. 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 Struggles to wake up [...] number to the 24-hour crisis line at [facility]. Questions addressed. Client verbalized understanding of [...] office should rash occur. Client verbalizes understanding. 06/23/2025 Other Discussed sleep hygiene and caffeine intake [...] number to the 24-hour crisis line at [facility]. Questions addressed. Client verbalized understanding of all information and is agreeable to treatment plan. Client agreeable to retrial of lamotrigine (forgot to take daily) and increase in propranolol to address insomnia/anxiety. Wants to trial 20 mg propranolol at bedtime and continue 10 mg (1/2 tablet) during daytime. Has not had any side effects with any medications. Is starting sober group and has sponsor now. Plan Of Treatment Next Appt Details Provider Name:Sae Bella , 08/02/2025 09:00:00 AM, [address], [place], [address], Insurance Providers Payer Name Payer Address Payer Phone Subscriber Number Group Number Insured Name Patient Relationship to Insured Coverage Start Date Coverage End Date [employer] [address] [place] [phone] [id number] Jocelyn Berg Self - patient is the insured 7 5 [employer] [address] [place] [address] [id number] Jocelyn Berg Self - patient is the insured 5 5 [employer] [address] [place] [phone] [id number] Jocelyn Berg Self - patient is the insured 5 [facility] [address] [place] [phone] [id number] Jocelyn Berg Self - patient is the insured 7 5 [employer] [address] [place] [address] [id number] Jocelyn Berg Self - patient is the insured 0 5 [employer] [address] [place] [address] [id number] Jocelyn Berg Self - patient is the insured 5 Medical (General) History Medical History History ICD Code Anxiety disorder, unspecified F41.9 Alcohol use disorder F10.99 Major depression F32.9 Other residential (current) drug therapy Z 79.899 Anxiety F41.9 anal fissure Surgical History Surgery Date(Month/Year) latertal sphincterotomy aug 2020 Hospitalization History Reason Date(Month/Year) Montanatler suicide attempt 2015 [facility] - 03/2020
--- OUTSIDE RECORDS SUMMARY | 2025-07-27 19:20 | XMS_ITS | Clinical Summary ---
Author Organization [facility] Address [address] [place] [address] Phone Care Team Providers Care Varnish Maker Helper Name Role Phone Kade Montaño MD Primary Care Provider Allergies No known active allergies Medications Norethindrone, Contraceptive, 0.35 MG Tablet Take 1 Tab by mouth daily. Active FLUoxetine HCl (PROZAC PO) Take by mouth. [...] by mouth 3 times daily. 45 Tablet 4 Active naproxen (NAPROSYN) 500 MG Tablet Take 1 Tablet by mouth 2 times daily as needed for Moderate or more severe pain. 20 Tablet 5 Active traMADol (ULTRAM) 50 MG TabletIndicatio ns:Low back pain Take 1 Tablet by mouth every 8 hours as needed for Moderate or more severe pain. 12 Tablet 5 Active Encounters Date Type Department Care Team Description 05/04/2025 Transcribe Orders [facility] [address] [place] [address] Eulalio Garcias MD Urgency of urination (Primary Dx); Frequency of micturition 05/03/2025 Transcribe Orders [facility] [address] [place] [address] Eulalio Garcias MD Urgency of urination (Primary Dx); Frequency of micturition from Last 3 Months Social History Tobacco Use Types Packs/Day Years Used Date Smoking Tobacco: Former Cigarettes 0.5 Q uit: 07/31/2017 Smokeless Tobacco: Never Tobacco [...] Sign Reading Time Taken Comments Blood Pressure 136/80 04/19/2025 2:11 PM CDT Pulse 70 04/19/2025 2:11 PM CDT Temperature 37.3 C (99.1 F) 04/19/2025 11:20 AM CDT Respiratory Rate 16 04/19/2025 2:11 PM CDT Oxygen Saturation 99% 04/19/2025 2:11 PM CDT Inhaled Oxygen Concentration - - Weight 89.8 kg (198 lb) 04/19/2025 11:20 AM CDT Height 170.2 cm (5' 7) 04/19/2025 11:20 AM CDT Body Mass Index 31.01 04/19/2025 11:20 AM CDT Plan of Treatment Health Maintenance Due Date Last Done Comments Hepatitis C Virus (HCV) Screening 1989 Varicella Immunization (1 of 2 - 13+ 2-dose series) 2002 Pap Smear 2010 Human Papillomavirus (HPV) Immunization (1 - 3-dose SCDM series) 2016 Cervical Cancer Screening (CCS) 12/04/2019 HPV/Cotest 12/04/2019 Hepatitis B Immunization (3 of 3 - 19+ 3-dose series) 07/27/2024 03/17/2024, 01/26/2024 Influenza Immunization (#1) 2025 11/0 02/2024, 06/23/2019 SARS-COV-2 Immunization (2 - season) 2025 03/22/2021 Respiratory Syncytial Virus (RSV) Immunization (Adult) (1 [...] measures to stabilize the patient. Care Teams Varnish Maker Helper Relationship Specialty Start Date End Date Kade Montaño MD [address] [place] [address], [address] [address] PCP - General Family Medicine 07/19/22
--- OUTSIDE RECORDS SUMMARY | 2025-07-27 19:20 | XMS_ITS | Clinical Summary ---
Author Organization [facility] Address [address] [place] [address] Care Team Providers Care Senior Software Analyst Name Role Phone Alem Dan NP Unavailable [phone] Eulalio Garcias MD Unavailable [phone] Elissa Arteaga PT Unavailable Unavailable Kade Montaño MD Primary Care Provider Allergies No known active allergies Medications FLUoxetine (PROzac) 40 mg capsuleIndicati ons:depression Take 1 capsule (40 mg total) by mouth daily 30 capsule 11 11/29/2022 Active busPIRone (BUSPAR) 10 mg tabletIndicatio ns:Generalized Anxiety Disorder Take 1 tablet (10 mg total) by mouth 2 (two) times a day 03/31/2025 Active meloxicam (MOBIC) 15 mg tablet Take 1 tablet (15 mg total) by mouth daily 30 tablet 04/06/2025 Active methylPREDNISol one (MEDROL DOSEPACK) 4 mg Dosepack Take as directed on package. 21 tablet 06/30/2025 Active cyclobenzaprine (FLEXERIL) 10 mg tabletIndicatio ns:Muscle Spasm Take 1 tablet (10 mg total) by mouth nightly as needed for muscle spasms 90 tablet 06/30/2025 Active lamoTRIgine (LaMICtal) 25 mg tablet 06/30/2025 Active Active Problems Problem Noted Date Diagnosed Date High risk HPV infection 04/27/2025 Assessment & Plan (04/27/2025 6:06 AM CDT): - noted on pap smear obtained in office - no abnormal cervical tissue noted on result - referral placed for OBGYN due to presence of high risk HPV as she will need closer follow up and repeat pap smears S/P tubal ligation 03/31/2025 Severe episode of recurrent major depressive disorder, without psychotic features 11/27/2022 Assessment & Plan (11/27/2022 12:51 PM CDT): Ms. Gordon is a 31 yo F with a [...] - appreciate SW and medical team recs Alcohol use disorder in remission 11/27/2022 Assessment & Plan (11/27/2022 12:52 PM [...] PRN DDD (degenerative disc disease), lumbar 07/26/20 21 Degenerative lumbar spinal stenosis 07/26/2021 Grade 1 isthmic spondylolisthesis at L5-S1 06/04 Lumbar spondylosis with left L5 radiculopathy Spondylolisthesis at L5-S1 level 02/28/2021 Assessment & Plan (07/01/2025 4:20 AM REVENUE TAX SPECIALIST): Low back pain with right-sided myofascial and sacroiliac involvement and lumbosacral spondylolisthesis Chronic low back pain with right-sided myofascial and sacroiliac involvement, exacerbated by physical activity and occupational demands. Previous imaging showed lumbosacral spondylolisthesis and radiculopathy. She was also previously evaluated by orthopedic surgery several years ago. Hx of MRI in past as well, documented below. She has hx of L5 pars defect - Patient was seen in the emergency department at [facility] on 04/19/2025 with a chief complaint of low back pain. - Prior evaluation in 08/24/2024 for low back pain with x-ray of lumbar spine that was done per chart review - She has done physical therapy for acute left-sided low back pain back in 05/2021 - She was previously evaluated by an orthopedic spine surgeon in 2020 and had time to diagnosis was grade 1 spondylolisthesis at L5-S1, lumba spondylosis with L5 radiculopathy, strain of neck muscle as well as isthmic spondylolisthesis. At the time she also had an x-ray of the cervical spine as well as lumbar spine. She was started on meloxicam 15 mg daily, short course of steroids as well as gabapentin that she was prescribed at the time. Current management includes meloxicam and tramadol, with limited relief. Discussed potential benefits of pain management interventions, including spinal injections,trigger point injections. Risks of long-term NSAID use include gastrointestinal and renal complications. Muscle relaxers may aid in nighttime pain relief. Insurance coverage for pain management services needs verification given her insurance is [employer]. - Referred to pain management for evaluation and potential spinal injections. - Prescribed Medrol Dose Pack for acute pain management. - Continue meloxicam with caution due to potential renal and gastrointestinal side effects. - Prescribed muscle relaxers for nighttime use to aid in muscle relaxation and sleep. - Advised rest and limitation of physical activity for three weeks, with a reduced work schedule of four hours per day. - Ordered kidney function tests and electrolytes to monitor renal health. - Scheduled follow-up appointment in one month. - Provided letter for time off for work she missed and limited restriction in work hours for next 2-3 weeks MRI lumbar spine 05/2017 IMPRESSION: 1.BILATERAL L5 PARS INTRA-ARTICULARIS DEFECTS WITH SECONDARY MINIMAL ANTEROLISTHESIS OF L5 ON S1. THIS CORRELATES TO RADIOGRAPHIC FINDINGS. 2.MILD POSTERIOR DISC BULGING AT L5-S1 CAUSING MILD CANAL AND FORAMINAL NARROWING. 3.OTHERWISE NORMAL MRI OF THE LUMBAR SPINE. 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 Patient is understanding and agreeable to treatment [...] Routine general medical exam ination at a health care facility 11/27/2022 03/31/2025 Assessment & Plan [...] (06/14/2020): Added automatically from request for surgery [id number] BMI 26.0-26.9,adult 06/14/2020 03/31/20 25 Blood in stool 05/11/2020 11/27/2022 Assessment & Plan (06/14/2020 1:57 PM CDT): Pt saw bright red blood on stool once. She usually just intermittently sees on TP. Noted to have anal fissure which is likely cause but will rule out other causes with colonoscopy. Abdominal pain 05/11/2020 04/27/2025 Assessment & Plan (06/14/2020 1:57 PM CDT): Mild to moderate mid to lower abdominal cramping that occurs with BM's. She says it is not always relieved with BM's. Bipolar 1 disorder 04/19/2020 3 Assessment & [...] Encounters Date Type Department Care Team Description 07/14/2025 8:53 AM REVENUE TAX SPECIALIST - 07/14/2025 11:59 PM REVENUE TAX SPECIALIST Hospital Encounter [facility] [address] [place] [address] A, [address] [place] [address] Adelfo Feliciano MD Sacroiliitis Discharge Disposition: Discharge to home or self care 07/06/2025 12:35 PM REVENUE TAX SPECIALIST - 07/06/2025 11:59 PM REVENUE TAX SPECIALIST Hospital Encounter [facility] [address] [facility] A, [address] [place] [address] Lorna Gunderson NP Sacroiliitis (Primary Dx); Acute right-sided low back pain without sciatica; Grade 1 isthmic spondylolisthesis at L5-S1 Discharge Disposition: Discharge to home or self care 07/01/2025 Telephone [facility] at [address] [phone] Kade Montaño MD Referral Request 06/30/2025 11:30 AM REVENUE TAX SPECIALIST Office Visit [facility] at [address] [address] Kade Montaño MD Right flank pain (Primary Dx); Chronic right-sided low back pain without sciatica; Spondylolisthesis at L5-S1 level from Last 3 Months Immunizations Immunization Administration Dates Next Due Hep B Vaccine 03/17/2024,01/26/2024 Influenza, Quadrivalent, Spl it, Intramuscular 06/23/2019 Influenza, Trivalent, Preser vative Free, Intramuscular 07/01/2024 Influenza, Unspecified 06/30/2025(Deferr ed: Patient Refused),03/31/2025(Deferred: Patient Refused),09/22/2024(Deferred: Patient Refused),05/25/2021(Deferred: Patient Refused),07/27/2020(Deferred: Patient [...] often do you attend chur ch or sabianist services? Never 11/27/2022 Do you belong to any clubs o r organizations such as congregation groups, unions, fraternal or athletic groups, or [...] points, staff should administer the PHQ-9) 0 07/06/2025 [facility] - Occupational Stress Questionnaire Answer Date [...] place to sleep or slept in a longterm (including now)? No 11/27/2022 PHQ-9 Answer Date Recorded PHQ-9 Total Score 2 07/06/2025 Personal Safety Answer Date Recorded Have you ever been in or are you currently in a harmful physical or emotional relationship or is someone making you feel afraid or unsafe? Denies 09/19/2024 Comments No Sex and Gender Information Value Date Recorded Sex Assigned at Not on file Legal Sex Female 5:49 PM REVENUE TAX SPECIALIST Gender Identity Not on file Sexual Orientation [...] g 9 9 WIENEK E,GIRL JESSIC A Maria Luisa quigley, Kvng Sewell MD Complications:None Delivery Location:This [facility] ([facility]) Last Filed Vital Signs Vital Sign Reading Time Taken Comments Blood Pressure 128/82 07/14/2025 9:15 AM REVENUE TAX SPECIALIST Pulse 78 07/14/2025 9:15 AM REVENUE TAX SPECIALIST Temperature 36.6 C (97.9 F) 07/14/2025 9:02 AM REVENUE TAX SPECIALIST Respiratory Rate 18 07/14/2025 9:15 AM REVENUE TAX SPECIALIST Oxygen Saturation 98% 07/14/2025 9:15 AM REVENUE TAX SPECIALIST Inhaled Oxygen Concentration - - Weight 89 kg (196 lb 3.2 oz) 06/30/2025 11:54 AM REVENUE TAX SPECIALIST Height 170.2 cm (5' 7) 06/30/2025 11:54 AM REVENUE TAX SPECIALIST Body Mass Index 30.73 06/30/2025 11:54 AM REVENUE TAX SPECIALIST Plan of Treatment Health Maintenance Due Date Last Done Comments HPV Vaccines (1 - 3-dose SCDM series) 2016 Varicella Vaccines (1 of 2 - 13+ 2-dose series) 05/19/2018 Cervical Cancer Screening 06/02/2021 06/02/2020 Covid-19 Vaccine ( season) 2025 03/22/2021 Influenza Vaccine (#1) 2026 07/01/2024, 2018 Postponed from 04/25/2025 (Patient declined, but will receive in the future) Regular Well Visit/Exam 18-64 03/31/2026 03/31/2025 Depression Screening 07/06/2026 07/06/2025, 07/06/2025, 06/30/2025, Additional history exists DTaP/Tdap/Td Vaccine (3 - Td or Tdap) 06/23/2029 06/23/2019, 03/12/2018 Hepatitis B Screening Completed 03/17/2024, 024 Hepatitis C Screening Completed 03/31/2025, 021 Pneumococcal vaccine <65 Aged Out No longer eligible based on patient's age to complete this topic Procedures Procedure Name Priority Date/Time Associated Diagnosis Comments PAIN MGMT IMAGING SI JOINT RIGHT Schedule Routine, Read Routine (OP Routine) 07/14/2025 9:13 AM REVENUE TAX SPECIALIST Sacroiliitis HEPATITIS C ANTIBODY Routine 03/31/2025 9:33 AM CDT Screen for sexually transmitted diseases PAP WITH REFLEX TO HIGH RISK HPV Routine 06/02/2020 12:06 PM CDT from Last 3 Months or Most Recently Relevant to Health Maintenance Results * Imaging SI Joint Injection Right ([id number]) (07/14/2025 9:13 AM REVENUE TAX SPECIALIST) Narrative [facility] - 07/14/2025 9:13 AM REVENUE TAX SPECIALIST The images from this study are not interpreted by Radiology. Please refer to the physician's procedure / OR operative note. us Lorna Gunderson NP IMG PAIN MGMT PROCEDURES Fin al Result [facility] * Hepatitis C antibody Blood (03/31/2025 9:33 [...] CDT Kade Montaño MD LAB [facility]CROBIOLOGY - [facility] ORDERABLES Final Result [facility] [address] [facility] [place] [address] * Pap with reflex to High Risk HPV (06/02/2020 12:06 PM CDT) 06/02/2020 12:0 6 PM CDT 06/02/2020 12:06 PM CDT Narrative 06/06/2020 2:17 PM CDT [facility] Department of Pathology [address] [place] [id number] Final Report with Addendum Patient Name: HONEY GORDON Address: [address] [place] [address] Gender: F : 1990 (Age: 29) Service: Laboratory Location: Lab [facility] #: [id number] Patient Type: Ref Lab Taken: 06/02/2020 Received: 06/02/2020 Accessioned:: 06/05/2020 Reported: 06/06/2020 Physician(s): Alberto Bello M.D. Diagnosis: Source of Specimen: Imaged Thinprep Pap Test plus HPV - Senior Analyst Market Intelligence Cytologic Material Specimen Adequacy: - Satisfactory for [...] Electronically Reviewed and Signed Out By JEANIE Sun(ASCP) 06/05/2020 14:34:07 Specimen(s) Received: A: Imaged Thinprep Pap Test plus HPV - Senior Analyst Market Intelligence Cytologic Material Clinical History: Last Menstrual Period: [...] determined by the Surgical Pathology Department at [facility] as part of an ongoing quality assurance supervisor trim program and in compliance with federally mandated [...] characteristics determined by the Surgical Pathology Department [facility]. It has not been cleared or approved by the U. S. Food and Drug Administration. Kade Montaño MD LAB CYTOLOGY ORDERABLES Final Result from Last 3 Months or Most Recently Relevant to Health Maintenance Insurance [facility] Advance Directives For more information, please contact: [phone] * Full Code (Latest Code Status on [...] in case of cardiopulmonary arrest Care Teams Senior Software Analyst Relationship Specialty Start Date End Date Kade Montaño MD [address] [facility] [address] [place] [address] PCP - General Family Medicine 04/19/20 Alem Dan NP [address] [place] [address] Nurse Practitioner Family Medicine 04/19/20 Eulalio Garcias MD [address] [facility] [address] [place] [address] Referring Physician Obstetrics and Gynecology 04/19/20 Elissa Arteaga, PT Physical Therapist Physical Therapy 12/24/21
[2025-07-27 19:21] VITALS: BP 127/78; PULSE 73; RESP 20; TEMP 37.2; O2SAT 100
--- OUTSIDE RECORDS SUMMARY | 2025-07-27 19:21 | XMS_ITS | Encounter Summary ---
Author Organization [facility] Address [address] [place] [address] Phone Care Team Providers Care Support Manager Name Role Phone Kade Montaño MD Primary Care Provider Reason for Referral * PT/OT/ST (Routine) - Canceled Specialty Diagnoses / Procedures Referred By Contac t Referred To Contact Physical Therapy Diagnoses Urgency of urination Frequency of micturition Eulalio Garcias MD [address] [address] Phone: tel: fax: [facility] at [address] [address] Phone: tel: fax: Referral ID Status Reason Start Date Expiration Date V isits Requested Visits Authorized [id number] Canceled 05/03/2025 100 100 Scheduling Instructions Encounter Details Date Type Department Care Team (Latest Contact Info) Description 05/03/2025 Transcribe Orders [facility] [address] [place] [phone] Eulalio Garcias MD [address] [facility] [address] [address] Urgency of urination (Primary Dx); Frequency of micturition Social History Tobacco Use Types Packs/Day Years Used Date Smoking Tobacco: Former Cigarettes 0.5 Q uit: 07/31/2017 Smokeless Tobacco: Never Alcohol Use Standard Drinks/Week Comments Not Currently 0 (1 standard drink = 0.6 oz pur e alcohol) occasionally Sexually Active Control Partners Comments Yes Male Comments No Sex and Gender Information Value Date Recorded Sex Assigned at Not on file Legal Sex Female 12:40 AM CDT Gender Identity Not on file Sexual Orientation Not on file documented as of this encounter Plan of Treatment Scheduled Referrals Name Type Priority Associated Diagnoses Orde r Schedule PHYSICAL THERAPY REFERRAL Outpatient Referral Routine Urgency of urination Frequency of micturition Expected: 05/03/2025, Expires: 05/03/2026 documented as of this encounter Visit Diagnoses Diagnosis Urgency of urination- Primary Frequency of micturition Urinary frequency documented in this encounter Care Teams Support Manager Relationship Specialty Start Date End Date Kade Montaño MD 2 [facility] , [address] [address] PCP - General Family Medicine 07/19/22 documented as of this encounter
--- NOTE | 2025-07-27 19:39 | ED.URI ---
HPI - URI/Sore Throat General Chief Complaint: Upper Respiratory Infection Stated Complaint: throat/cough/aches and chills Time Seen by Provider: 07/27/25 19:30 Source: patient, RN notes reviewed and old records reviewed Mode of arrival: ambulatory Limitations: no limitations History of Present Illness HPI Narrative: 34 year old female who presents to [facility] care with complaints of sore throat for 1 week with slight cough, body aches, and chills which started yesterday. Patient reports concern for possible COVID. 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 MD elicited complaint: cough and sore throat Onset (ago): week(s) (1) Consistency: progressively worsening Pain scale (0-10): 5 Able to tolerate fluids by mouth: Yes Treatments prior to arrival: acetaminophen and ibuprofen Related Data Home Medications ?Medication ?Instructions ?Recorded ?Confirmed ?Last Taken ?Type buspirone 10 mg tablet 20 mg PO BID 04/21/25 05/03/25 Unknown History ferrous sulfate 325 mg (65 mg 325 mg PO DAILY 04/21/25 05/03/25 Unknown History iron) tablet fluoxetine 40 mg capsule 40 mg PO DAILY 04/21/25 05/03/25 Unknown History Allergies Allergy/AdvReac Type Severity Reaction Status Date / Time No Known Allergies Allergy Verified 07/27/25 19:19 Review of Systems Review of Systems: CONSTITUTIONAL: reports malaise, chills, sweats, or fever. EYES: Denies visual changes, redness, or discharge. ENT: Reports rhinorrhea, congestion, sinus pain, no otalgia and +sore throat. CARDIOVASCULAR: Denies chest pain, palpitations, or edema. RESPIRATORY: Reports occasional cough.? Denies dyspnea. GASTROINTESTINAL: Denies abdominal pain, nausea, vomiting, diarrhea SKIN: Denies rash or itching. MUSCULOSKELETAL: reports myalgia. NEUROLOGIC: Denies headache. All systems reviewed & are unremarkable except as noted in HPI and below PMFSH Past Medical History Medical History (Updated 07/29/25 @ 08:01 by Fabiola Donahue APRN) GERD (gastroesophageal reflux disease) Depression Anxiety Obesity Anemia Surgical History Surgical History (Updated 07/29/25 @ 08:01 by Fabiola Donahue APRN) History of foot surgery History of placement of ear tubes as child History of tubal ligation Family History Family History Grandparent Diabetes mellitus Hypertension Sibling Diabetes mellitus Hypertension Mother Hypertension Acute myocardial infarction Social History Social History Smoking status: Current every day smoker Tobacco type: e-cigarettes/vaping Alcohol intake: never Substance use: never Living arrangements: with family Gender identity (if verbalized by the patient): Female Sexual Orientation (if Verbalized by the Patient): Straight or Heterosexual Spiritual care concerns: No Comments At time of signature, agree with nursing past medical, surgical, social and family history. There is no relevant family history pertinent to the presenting complaint Exam Narrative: GENERAL: ill-appearing, well-nourished, and in no acute distress. HEAD: Normocephalic EYES: PERRLA, conjunctivae clear ENT: Nares clear, turbinates edematous and erythematous, clear discharge. Mucous membranes moist. TM pearly muir with dull light reflex bilaterally; no tragal tenderness. Oropharynx erythematous without lesions. Tonsils red enlarged and without exudate, no drooling, no hoarseness, no trismus, uvula midline.some post nasal drainage NECK: Supple. No lymphadenopathy CHEST: Clear to auscultation, breath sounds equal. No wheezing, rhonchi, rales, or stridor. No respiratory distress, speaks in full sentences.SAO2 100% on room air,occasional dry cough noted HEART: Regular rate and rhythm. No murmur heard. SKIN: Warm, dry, no rash. NEURO: Alert and oriented x3. PSYCH: Normal mood and affect Course Course Level of Care: Express Care Visit Vital Signs Vital signs: Vital Signs Temperature 37.2 C 07/27/25 19:21 Pulse Rate 73 07/27/25 19:21 Respiratory Rate 20 07/27/25 19:21 Blood Pressure 127/78 07/27/25 19:21 Pulse Oximetry 100 07/27/25 19:21 Oxygen Delivery Room Air 07/27/25 19:21 Temperature 37.2 C 07/27/25 19:21 Pulse Rate 73 07/27/25 19:21 Respiratory Rate 20 07/27/25 19:21 Blood Pressure 127/78 07/27/25 19:21 Pulse Oximetry 100 07/27/25 19:21 Oxygen Delivery Room Air 07/27/25 19:21 reviewed MDM MDM Narrative Medical decision making narrative: 34 year old female with complaints of sore throat chills and body aches testing positive for strep, negative for flu and COVID. Will treat with antibiotic today and instructions on use of Tylenol and Ibuprofen for fevers, chills and body aches. Patient is appropriate for outpatient treatment and anticipatory guidance and reasons to go to ED for further evaluation reviewed with understanding verbalized. Differential Diagnosis Differential Diagnosis: Differential diagnostic considerations for upper respiratory infection include upper respiratory infection, croup, otitis media, sinusitis, viral infection, bronchitis, influenza, pharyngitis, strep, uvulitis.? Lab Data Lab results narrative: strep test positive, COVID antigen negative, Influenza A&B negative Labs: Lab Results 07/27/25 07/27/25 Range/Units 19:41 19:43 POC Influenza A Ag Negative Negative (Negative) POC Influenza B Ag Negative Negative (Negative) POC SARS CoV-2 Ag Negative Negative (Negative) POC Grp A Strep Screen Positive Positive (Negative) reviewed Critical Care Time Critical Care Time Critical Care Time: No Discharge Plan Discharge Clinical Impression: Acute streptococcal pharyngitis Patient Disposition: Home Condition: Stable Instructions: Antibiotic Form, Strep Throat (ED) Additional Instructions: You tested positive for Group A strep . Take the entire course of antibiotics. Throw away your current toothbrush and begin using a new toothbrush in 48 hours in order to prevent re-infection. Sanitize all reusable water bottles . Do not share items with others. Salt water gargles may alleviate some of the throat discomfort. You can take Tylenol or ibuprofen per the package instructions for pain/fever. If your symptoms persist, change or worsen significantly before you can contact your personal physician then please, without delay, go to the emergency department for further evaluation. Follow-up with PCP in 7-10 days or sooner if needed Patient Language: Kiswahili Prescriptions: New amoxicillin 500 mg capsule 1,000 mg PO Q12H Qty: 40 0RF No Action fluoxetine 40 mg capsule 40 mg PO DAILY ferrous sulfate 325 mg (65 mg iron) tablet 325 mg PO DAILY buspirone 10 mg tablet 20 mg PO BID valacyclovir 500 mg tablet 500 mg PO DAILY Qty: 90 2RF Follow-up/Referrals: Danyel,Kade Sales MD [Primary Care Provider, Unknown] Stand Alone Forms: Work/School Release IP Time of Disposition: 19:49 Quality Atilio Coma Scale Eyes: Open Verbal: Oriented and Alert Motor: Follows Commands [place] Coma Total Score: 15
[2025-07-27 19:45] LABS: EDCOVIDSCREEN Negative (Negative); EDINFLUASCREEN Negative (Negative); EDINFLUBSCREEN Negative (Negative); EDSTREPNEGPOS1 Positive (Negative)
[2025-07-27 19:47] LABS: EDCOVIDSCREEN Negative (Negative); EDINFLUASCREEN Negative (Negative); EDINFLUBSCREEN Negative (Negative); EDSTREPNEGPOS1 Positive (Negative)
== END 2025-07-27 20:01 | disposition home or self-care (01) ==
PROVIDERS: Emergency Provider Registered Nurse; PCP Family Medicine
DX: J02.0 Streptococcal pharyngitis (principal); Z20.822 Contact with and (suspected) exposure to COVID-19; F17.290 Nicotine dependence, other tobacco product, uncomplicated; K21.9 Gastro-esophageal reflux disease without esophagitis; E66.9 Obesity, unspecified; Z68.29 Body mass index [BMI] 29.0-29.9, adult; F41.9 Anxiety disorder, unspecified; F32.A Depression, unspecified; D64.9 Anemia, unspecified
CPT/HCPCS: 87426; 87804; 87880; 99213; G0463